=== PATIENT | male | born 1970 | race Caucasian/White ===

== ENCOUNTER 2021-01-23 16:15 | Outpatient (REF) | payer OTHER, SELFPAY ==
[2021-01-23 16:47] LABS: MANUAL DIFF FLAG NO
[2021-01-23 17:02] LABS: Basophils Absolute Auto 0.1 X10*3/uL (0.0-0.2); Basophils Percent Auto 0.6 % (0-2); Eosinophils Absolute Auto 0.1 X10*3/uL (0.0-0.4); Eosinophils Percent Auto 0.9 % (0-4); Hematocrit 41.8 % (42-52); Hemoglobin 14.2 g/dl (14.0-18.0); Imm Gran Abs Auto 0.03 X10*3/uL (0.00-0.03); Imm Gran Pct Auto 0.4 % (0.0-0.4); Lymphocytes Absolute Auto 2.1 X10*3/uL (1.2-4.9); Lymphocytes Percent Auto 25.8 % (20-40); Mean Corpuscular Hemoglobin 30.7 pg (27.0-33.0); Mean Corpuscular Volume 90.5 fL (80-98); Mean Platelet Volume 10.8 fL (9.4-12.4); Monocytes Absolute Auto 0.7 X10*3/uL (0.1-1.2); Neutrophils Absolute Auto 5.2 X10*3/uL (2.0-8.3); Neutrophils Percent Auto 64.3 % (45-73); Platelet Count 263 X10*3/uL (160-400); Red Blood Count 4.62 X10*6/uL (4.60-5.80); Red Cell Distribution Width 12.2 % (11.0-16.0); White Blood Count 8.1 X10*3/uL (4.8-10.8)
[2021-01-23 17:36] LABS: Alanine Aminotransferase 22 U/L (0-40); Albumin Level 4.7 g/dL (3.5-5.0); Alkaline Phosphatase 55 U/L (39-117); Anion Gap 12 (12-20); Aspartate Amino Transferase 22 U/L (5-37); Bilirubin Total 0.3 mg/dL (0.0-1.0); Blood Urea Nitrogen 14 mg/dL (9-16); C Reactive Protein 0.22 mg/dL (< or = 0.50); Calcium 9.8 mg/dL (8.4-10.2); Carbon Dioxide 26 mmol/L (22-29); Chloride 109 mmol/L (96-108); Estimated Glomerular Filt Rate > 60; Glucose Random 82 mg/dL (60-115); Iron 62 mcg/dL (45-160); Potassium 4.4 mmol/L (3.3-5.1); Sodium 143 mmol/L (135-145); Total Protein 7.4 g/dL (6.5-8.0)
[2021-01-23 17:42] LABS: Glucose Urine UA NEG (NEG); Leukocyte Esterase Urine NEG (NEG); Nitrite Urine NEG (NEG); Urine Blood NEG (NEG); Urine Ketones NEG (NEG); Urine Protein NEG (NEG-TRACE)
[2021-01-23 17:43] LABS: Appearance Urine CLEAR; Color Urine YELLOW
[2021-01-23 17:48] LABS: Prostate Specific Antigen 0.83 ng/mL (<0.05-4.0)
[2021-01-23 17:51] LABS: Percent Iron Saturation 19 % (15-50); Total Iron Binding Capacity 322 mcg/dL (228-428); Unsaturated Iron Binding 260 ug/dL
== END 2021-01-23 16:16 | disposition home or self-care (01) ==
LOC: HO.LAB 16:15
PROVIDERS: PCP Internal Medicine; Visit Provider Internal Medicine
DX: Z12.5 Encounter for screening for malignant neoplasm of prostate (principal); R14.0 Abdominal distension (gaseous); R19.7 Diarrhea, unspecified
CPT/HCPCS: 36415; 80053; 81003; 83540; 84153; 85025; 86140

== ENCOUNTER 2021-02-02 10:20 | Day surgery (SDC) | payer OTHER, SELFPAY ==
[2021-02-02 10:32] VITALS: BP 122/81; PULSE 89; RESP 18; TEMP 36.8; O2SAT 97; BMI 24.7
[2021-02-02] MEDS: Lactated Ringers 1,000 ML 50 ML IVCONT (10:43)
--- NOTE | 2021-02-02 10:46 | MHC.SHP ---
Pre-Procedural Eval Section A Date of Service: 02/02/21 The patient is an INPATIENT: No Changes since office visit: No Cold of Flu in the past 2 weeks, No New Medical Problems, No Changes in Medication and No Patient answered all questions The History & Physical has been completed within 30 days and I have reviewed it.: Yes Section B Chief Complaint: Other Fecal Abnormalities Allergies: Allergies Allergy/AdvReac Type Severity Reaction Status Date / Time codeine Allergy Unknown Verified 02/01/21 11:39 Plan I have reviewed the history and physical and performed a pertinent physical examination on my patient. No changes have occurred unless specified.
--- NOTE | 2021-02-02 10:53 | HO.ANESPROP2 ---
[facility] Past Medical History Medical History (Updated 02/02/21 @ 10:42 by Nisha Taylor RN) Asthma Social History Social History Patient Tobacco Use Status: Current everyday Tobacco user Use of substances other than those prescribed or required for medical reasons: Yes Have you been hit, kicked, punched, or otherwise hurt by someone within the past year? If so, by whom?: No Are you DNR?: No Advance Directives: No Advance Directives Information Provided: Yes Meds Allergies Allergy/AdvReac Type Severity Reaction Status Date / Time codeine Allergy Unknown Verified 02/01/21 11:39 Active Medications: Current Medications Generic Name Dose Route Start Last Admin Trade Name Freq PRN Reason Stop Dose Admin Lactated Ringer's 1,000 mls @ 50 mls/hr 02/02/21 08:00 02/02/21 10:43 Lr IVCONT 50 mls/hr .Q20H PREETHI Administration Home Medications Medication Instructions Recorded Confirmed Last Taken Type Prilosec OTC 02/02/21 02/02/21 02/02/21 07:00 History Exam Exam Date and Time: February 02, 2021 1053 Height,Weight and Vital Signs: Height 5 ft 10 in Weight 78.018 kg Last Vital Signs Temp 98.3 F 02/02/21 10:32 Pulse 89 02/02/21 10:32 Resp 18 02/02/21 10:32 BP 122/81 02/02/21 10:32 Pulse Ox 97 02/02/21 10:32 Airway Mallampati Class: II TM Dist: >3cm Neck ROM: Full
[2021-02-02 11:22] VITALS: BP 112/80; PULSE 71; RESP 20; TEMP 36.1; O2SAT 97
--- NOTE | 2021-02-02 11:33 | P.BOP_ITS ---
Brief Operative Note Date of Service: 02/02/21 Pre-op diagnosis: heme pos Post-op diagnosis: same (normal) Procedure: colonoscopy Surgeon: Camilo Duron Anesthesia: MAC Was an Lathe Operator Contact Lens used for this Procedure?: No Estimated blood loss (mL): 2 Pathology: other (bxs ti and ileum) Condition: stable Disposition: PACU
[2021-02-02 11:37] VITALS: BP 117/81; PULSE 75; RESP 18; TEMP 37; O2SAT 98
--- NOTE | 2021-02-02 13:16 | OP_ITS ---
SURGEON: Camilo Duron MD INDICATIONS: Heme-positive stool. PREOPERATIVE DIAGNOSIS: POSTOPERATIVE DIAGNOSIS: PROCEDURE PERFORMED: Colonoscopy to the terminal ileum with biopsy. ESTIMATED BLOOD LOSS: COMPLICATIONS: ANESTHESIA: ASSISTANTS: SPECIMENS: MEDICATIONS: Monitored anesthesia care. DESCRIPTION OF PROCEDURE: History and physical performed. The risks and benefits of the procedure were explained to the patient. Informed consent was obtained. The patient was placed in the left lateral decubitus position. A digital rectal exam was performed and was found to be normal. The Olympus pediatric video colonoscope was introduced into the rectum and advanced to the cecum without difficulty. The cecum was identified by transillumination, palpation, and identification of ileocecal valve. Examination was performed and the scope was removed. He tolerated the procedure well and was taken to recovery area in stable condition. FINDINGS: The terminal ileum was examined and there was a question of some mild ileitis. This was biopsied. There was no evidence of Crohn disease. The visualized colonic mucosa was normal. The quality of the prep was good. No polyps were identified. Retroflexed examination showed moderate-sized internal hemorrhoids. No bleeding was identified. Biopsies were obtained randomly from the sigmoid to evaluate for microscopic colitis. IMPRESSION: Normal colonoscopy. RECOMMENDATION: Follow up the biopsy results. Screening colonoscopy in 10 years. MD VIVIANE Oates/POWERL / [id number] MTDD
== END 2021-02-02 12:32 | disposition home or self-care (01) ==
PROVIDERS: PCP Internal Medicine; Visit Provider Internal Medicine Gastroenterology
PROC: 0DJD8ZZ Inspection of Lower Intestinal Tract, Via Natural or Artificial Opening Endoscopic (ICD-10-PCS; CPT 45378; principal; 2021-02-02 12:10)
DX: R19.5 Other fecal abnormalities (principal); K62.5 Hemorrhage of anus and rectum; R14.0 Abdominal distension (gaseous); K64.8 Other hemorrhoids; K21.9 Gastro-esophageal reflux disease without esophagitis; J45.909 Unspecified asthma, uncomplicated; Z79.899 Other long term (current) drug therapy; Z88.8 Allergy status to other drugs, medicaments and biological substances; Z87.891 Personal history of nicotine dependence
CPT/HCPCS: 45380; 88305

== ENCOUNTER 2022-05-15 07:43 | Outpatient (REF) | payer OTHER, SELFPAY ==
[2022-05-15 10:39] LABS: MANUAL DIFF FLAG NO
[2022-05-15 10:50] LABS: Basophils Absolute Auto 0.1 X10*3/uL (0.0-0.2); Basophils Percent Auto 0.9 % (0-2); Eosinophils Absolute Auto 0.2 X10*3/uL (0.0-0.4); Eosinophils Percent Auto 3.1 % (0-4); Hematocrit 45.7 % (42.0-52.0); Imm Gran Abs Auto 0.02 X10*3/uL (0.00-0.03); Imm Gran Pct Auto 0.3 % (0.0-0.4); Lymphocytes Absolute Auto 2.3 X10*3/uL (1.2-4.9); Mean Corpuscular HGB Conc 32.8 g/dl (31.0-36.0); Mean Corpuscular Hemoglobin 30.4 pg (27.0-33.0); Mean Corpuscular Volume 92.5 fL (80.0-98.0); Mean Platelet Volume 10.6 fL (9.4-12.4); Monocytes Absolute Auto 0.5 X10*3/uL (0.1-1.2); Monocytes Percent Auto 9.3 % (2-11); Neutrophils Absolute Auto 2.7 x10*3/uL (2.0-8.3); Neutrophils Percent Auto 46.4 % (45-73); Platelet Count 269 X10*3/uL (160-400); Red Blood Count 4.94 X10*6/uL (4.60-5.80); Red Cell Distribution Width 12.3 % (11.0-16.0); White Blood Count 5.8 X10*3/uL (4.8-10.8)
[2022-05-15 11:12] LABS: Alanine Aminotransferase 19 U/L (0-40); Albumin Level 4.7 g/dL (3.5-5.0); Alkaline Phosphatase 59 U/L (39-117); Anion Gap 13 (12-20); Aspartate Amino Transferase 20 U/L (5-37); Bilirubin Total 0.5 mg/dL (0.0-1.0); Blood Urea Nitrogen 14 mg/dL (9-16); Calcium 9.4 mg/dL (8.4-10.2); Carbon Dioxide 28 mmol/L (22-29); Chloride 105 mmol/L (96-108); Cholesterol 258 mg/dL; Estimated Glomerular Filt Rate > 60; Glucose Fasting 95 mg/dL (60-99); HDL Cholesterol 45 mg/dL; LDL Cholesterol Calculated 178 mg/dl; Sodium 142 mmol/L (135-145); Total Protein 7.4 g/dL (6.5-8.0); Triglycerides 179 mg/dL
== END 2022-05-15 07:44 | disposition home or self-care (01) ==
LOC: HO.10HDL 07:43
PROVIDERS: Visit Provider Internal Medicine
DX: Z00.00 Encounter for general adult medical examination without abnormal findings (principal)
CPT/HCPCS: 36415; 80053; 80061; 85025

== ENCOUNTER 2024-05-04 16:40 | Emergency (ER) | payer OTHER, SELFPAY ==
[2024-05-04] VITALS (7 sets, daily range): BP systolic 113–132; BP diastolic 72–97; PULSE 88–184; RESP 18–19; TEMP 36.6–36.8; O2SAT 97; BMI 24.2
--- NOTE | ~2024-05-04 | XR_ITS ---
EXAMINATION: XR CHEST CLINICAL INFORMATION: Palpitations COMPARISON: None available. TECHNIQUE: Frontal view of the chest was obtained. FINDINGS: No significant abnormality is noted involving the heart, lungs, mediastinum, bony thorax or soft tissues. XR/XR chest 1V IMPRESSION: Unremarkable examination. Electronically signed by: Doreen Cronin MD 05/04/2024 05:26 PM [facility] [place]
--- NOTE | 2024-05-04 16:42 | ECG_ITS ---
Test Reason : AFIB RVR Blood Pressure : / mmHG Vent. Rate : 175 BPM Atrial Rate : 000 BPM P-R Int : 000 ms QRS Dur : 074 ms QT Int : 250 ms P-R-T Axes : 000 033 077 degrees QTc Int : 426 ms Atrial fibrillation with rapid ventricular response Abnormal ECG No previous ECGs available Referred By: Alice Kraft Electronically Signed By:Giuseppe Longoria
--- NOTE | 2024-05-04 16:43 | ED_ITS ---
HPI - General Adult General Chief complaint: Arrhythmia/Palpitations Stated complaint: Uncontrolled Afib per Dr Bergman Time Seen by Provider: 05/04/24 16:52 History of Present Illness ED Provider: Dr. Charles HPI narrative: 53 y/o M patient; PMH HTN, HLD; presents from PCP office where he had a routine appointment with report of irregularly irregular tachycardia. The patient denies any prior history of similar symptoms. The patient denies: chest pain, SOB, cough/congestion, nausea/vomiting, abdominal pain. Related Data Home Medications ?Medication ?Instructions ?Recorded ?Confirmed Prilosec OTC 02/02/21 02/02/21 Previous Rx's ?Medication ?Instructions ?Recorded apixaban 5 mg tablet (Eliquis) 5 mg PO BID 30 days #60 tabs 05/04/24 diltiazem HCl 120 mg capsule,24 120 mg PO DAILY 30 days #30 caps 05/04/24 hr,extended release Allergies Allergy/AdvReac Type Severity Reaction Status Date / Time codeine Allergy Unknown Verified 05/04/24 16:44 Review of Systems 2 Review of Systems: Yes all other systems are reviewed and are negative PMFSH Past Medical History Attestation statement: The following information was validated with the patient. Source: unable to obtain Medical History Asthma Social History Social History Patient Tobacco Use Status: Current everyday Tobacco user Smoked in Last 30 Days: Yes Substance Use Type: Marijuana Advance Directives: No Advance Directives Information Provided: No Do you have a plan to hurt others: No Plan Physical Exam ED Vital Signs: Vital Signs - 24 hr 05/04/24 16:43 05/04/24 17:07 05/04/24 17:52 Temperature 97.8 F Pulse Rate 128 H 184 H 120 H Respiratory Rate 18 Blood Pressure 132/97 H 124/87 Pulse Oximetry 97 Oxygen Delivery Method Room Air 05/04/24 18:35 05/04/24 18:43 05/04/24 19:15 Temperature 98.3 F Pulse Rate 113 H 88 88 Respiratory Rate 19 18 Blood Pressure 116/92 H 113/80 117/72 Pulse Oximetry 97 97 Oxygen Delivery Method Room Air BMI result Body Mass Index 24.2 Patient is tachycardic in irregularly irregular rhythm, otherwise hemodynamically stable Const General: cooperative and no acute distress HENMT Head: Yes normal to inspection and Yes atraumatic Eyes General: appearance normal, both eyes and all related structures Pupils: Equal, round and reactive pupils present EOM: EOMs intact bilaterally Neck Neck: Yes normal visual inspection, Yes full ROM, Yes supple and No tender Chest Chest palpation & inspection: normal inspection of the chest and normal palpation of entire chest wall Resp Effort & Inspection: normal respiratory effort, able to speak in complete sentences, no cough and no respiratory distress Auscultation: clear to auscultation bilaterally Cardio Rate: tachycardic Rhythm: abnormal rhythm Peripheral pulses: Peripheral pulses 2+ throughout GI Inspection: Yes normal to inspection, No Abdominal wall edema and No distended Palpation (GI): Soft to palpation, not firm, nontender, no guarding and not rigid Auscultation: normal bowel sounds Back/Spine/Pelvis Back: No back tenderness Neuro Cranial nerves: Yes Equal, round and reactive pupils present Course Course Course Narrative: This is a rapid medical exam performed by Lamar Kraft NP: Additional HPI, ROS, PE not included below will be deferred to primary provider. Patient is a 53-year-old male presenting to ED from Dr. Bergman's office in [facility] with RVR in the 180's. Patient reports that he feels palpitations all the time. Denies chest pain or dyspnea. Was being seen there for a lump on his neck, unrelated to the palpitations. HR in triage 100-130s. Only on atorvastatin and losartan. Plan: EKG, labs Reevaluation(s) Reevaluation #1: Patient is afebrile, tachycardic with irregularly irregular rhythm. This rhythm on EKG is consistent with atrial fibrillation. Unfortunately as patient is uncertain when this rhythm began, he would not be an ideal candidate for emergency department cardioversion due to risk of thromboembolism. Will provide Diltiazem for rate control. After 25mg/kg IV dose Diltiazem HR improved to low 100s. Provided 60mg PO Diltiazem. Will obtain EKG, CXR, and labs. Labs reviewed. No significant leukocytosis or anemia. CHADs-Vasc 1 for HTN. He is low-moderate risk so recommended to consider anticoagulation. HAS-Bled 1 for HTN. Patient is agreeable to starting eliquis for atrial fibrillation. Reevaluation #2: CXR is unremarkable. Labs are reassuring. Initial troponin 7, pending repeat troponin. On re-evaluation patient's HR is 110 - 130BPM. Provided Diltiazem .35mg/kg Diltiazem. Discussed case with Cardiology Dr. Longoria. Recommend's out-patient follow up with daily Cardizem 120 mg. Plan: Discharge to home with Cardiology follow up Return precautions given Patient eloped from the emergency department without his discharge paperwork. Medications Administered Discontinued Medications Generic Name Dose Route Start Last Admin Trade Name Freq PRN Reason Stop Dose Admin Apixaban 5 mg 05/04/24 17:14 05/04/24 17:57 Apixaban 5 Mg Tablet PO 05/04/24 17:15 5 mg ONCE ONE Administration Diltiazem HCl 20 mg 05/04/24 17:04 05/04/24 17:07 Diltiazem Hcl 50 Mg/10 Ml Vial IVPUSH 05/04/24 17:05 20 mg STAT STA Administration Diltiazem HCl 60 mg 05/04/24 17:10 05/04/24 17:52 Diltiazem Hcl 60 Mg Tablet PO 05/04/24 17:11 60 mg ONCE ONE Administration Protocol Diltiazem HCl 27 mg 05/04/24 18:24 05/04/24 18:35 Diltiazem Hcl 50 Mg/10 Ml Vial IVPUSH 05/04/24 18:25 27 mg STAT STA Administration Medical Decision Making Lab Data 05/04/24 16:53 05/04/24 16:53 Labs: Lab Results 05/04/24 05/04/24 Range/Units 16:53 19:50 WBC 8.8 (4.8-10.8) X10*3/uL RBC 5.14 (4.60-5.80) X10*6/uL Hgb 16.2 (14.0-18.0) g/dl Hct 47.6 (42.0-52.0) % MCV 92.6 (80.0-98.0) fL MCH 31.5 (27.0-33.0) pg MCHC 34.0 (31.0-36.0) g/dl RDW 12.6 (11.0-16.0) % Plt Count 239 (160-400) X10*3/uL MPV 10.8 (9.4-12.4) fL Immature Gran % (Auto) 0.3 (0.0-0.4) % Neut % (Auto) 69.3 (45-73) % Lymph % (Auto) 19.5 L (20-40) % Calvert % (Auto) 8.9 (2-11) % Eos % (Auto) 1.3 (0-4) % Baso % (Auto) 0.7 (0-2) % Lymph # (Auto) 1.7 (1.2-4.9) X10*3/uL Calvert # (Auto) 0.8 (0.1-1.2) X10*3/uL Eos # (Auto) 0.1 (0.0-0.4) X10*3/uL Baso # (Auto) 0.1 (0.0-0.2) X10*3/uL Abs Immat Gran (auto) 0.03 (0.00-0.03) X10*3/uL Absolute Neuts (auto) 6.1 (2.0-8.3) x10*3/uL Absolute Nucleated RBC 0.000 (0.0-0.012) X10*3/uL Nucleated RBC % (auto) 0.0 (0.0-0.2) /100WBC PT 11.8 (10.9-12.4) SEC INR 1.0 (0.9-1.1) APTT 30.3 (26.0-36.8) SEC Sodium 145 (135-145) mmol/L Potassium 4.7 (3.3-5.1) mmol/L Chloride 108 (96-108) mmol/L Carbon Dioxide 25 (22-29) mmol/L Anion Gap 17 (12-20) BUN 12 (9-16) mg/dL Creatinine 0.91 (0.5-1.4) mg/dL Estim Creat Clear Calc 99.1 Estimated GFR > 60 Random Glucose 105 (60-115) mg/dL Calcium 9.9 (8.4-10.2) mg/dL Magnesium 2.0 (1.6-2.6) mg/dL Total Bilirubin 0.4 (0.0-1.0) mg/dL AST 26 (5-37) U/L ALT 36 (0-40) U/L Alkaline Phosphatase 60 (39-117) U/L Troponin I High Sens 7.2 4.8 (<3.5-35.0) ng/L Total Protein 7.7 (6.5-8.0) g/dL Albumin 4.8 (3.5-5.0) g/dL TSH 2.26 (0.32-4.0) uIU/mL Ethyl Alcohol < 10 mg/dL Independent Interpretation I performed an independent interpretation of an: EKG Interpretation: Atrial fibrillation 175BPM with normal intervals Radiology Impression Discussion of test interpretation with radiology: I have reviewed the radiologist's reading. Radiologist Impression: EXAMINATION: XR CHEST CLINICAL INFORMATION: Palpitations COMPARISON: None available. TECHNIQUE: Frontal view of the chest was obtained. FINDINGS: No significant abnormality is noted involving the heart, lungs, mediastinum, bony thorax or soft tissues. XR/XR chest 1V IMPRESSION: Unremarkable examination. Electronically signed by: Doreen Cronin MD 05/04/2024 05:26 PM [facility] [place] Critical Care Time Critical Care Time Critical Care Time: Yes Total Critical Care Time: 37 Attestation: Total critical care time: Approximately?37?minutes Due to a high probability of clinically significant, life threatening deterioration, the patient required my highest level of preparedness to intervene emergently and I personally spent this critical care time directly and personally managing the patient. This critical care time included obtaining a history; examining the patient; pulse oximetry; ordering and review of studies; arranging urgent treatment with development of a management plan; evaluation of patient's response to treatment; frequent reassessment; and, discussions with other providers. This critical care time was performed to assess and manage the high probability of imminent, life-threatening deterioration that could result in multi-organ failure. It was exclusive of separately billable procedures and treating other patients Discharge Plan Discharge Clinical Impression: Atrial fibrillation Patient Disposition: Home, Self-Care Instructions: A-fib (Atrial Fibrillation) (DC) Additional Instructions: As we discussed, you were diagnosed with a new heart rhythm called atrial fibrillation. You are started on two new medications: Eliquis (a blood thinner you take twice a day) and Diltiazem (a heart medicine you take once a day). Please call the number provided to make an appointment to be seen by cardiology as soon as possible. Follow up with your PCP as well to discuss your recent emergency department visit and for re-evaluation. Return to the emergency department for: Any head trauma Passing out Chest pain Difficulty breathing Prescriptions: New Eliquis 5 mg tablet 5 mg PO BID 30 Days Qty: 60 0RF diltiazem HCl 120 mg capsule,extended release 24 hr 120 mg PO DAILY 30 Days Qty: 30 0RF No Action Prilosec OTC Referrals: Giuseppe Longoria MD [Physician] - 1 day Print Language: Telugu
[2024-05-04 16:58] LABS: MANUAL DIFF FLAG NO
[2024-05-04 16:59] LABS: Basophils Absolute Auto 0.1 X10*3/uL (0.0-0.2); Basophils Percent Auto 0.7 % (0-2); Eosinophils Absolute Auto 0.1 X10*3/uL (0.0-0.4); Eosinophils Percent Auto 1.3 % (0-4); Hematocrit 47.6 % (42.0-52.0); Hemoglobin 16.2 g/dl (14.0-18.0); Imm Gran Abs Auto 0.03 X10*3/uL (0.00-0.03); Imm Gran Pct Auto 0.3 % (0.0-0.4); Lymphocytes Absolute Auto 1.7 X10*3/uL (1.2-4.9); Lymphocytes Percent Auto 19.5 % (20-40); Mean Corpuscular Hemoglobin 31.5 pg (27.0-33.0); Mean Corpuscular Volume 92.6 fL (80.0-98.0); Mean Platelet Volume 10.8 fL (9.4-12.4); Monocytes Absolute Auto 0.8 X10*3/uL (0.1-1.2); Monocytes Percent Auto 8.9 % (2-11); Neutrophils Absolute Auto 6.1 x10*3/uL (2.0-8.3); Neutrophils Percent Auto 69.3 % (45-73); Platelet Count 239 X10*3/uL (160-400); Red Blood Count 5.14 X10*6/uL (4.60-5.80); Red Cell Distribution Width 12.6 % (11.0-16.0); White Blood Count 8.8 X10*3/uL (4.8-10.8)
[2024-05-04] MEDS: dilTIAZem HCL 50 MG/10 ML VIAL 20 MG IVPUSH (17:07)
[2024-05-04 17:10] LABS: Prothrombin Time 11.8 SEC (10.9-12.4)
[2024-05-04 17:13] LABS: Partial Thromboplastin Time 30.3 SEC (26.0-36.8)
[2024-05-04 17:20] LABS: Troponin-I High Sensitivity 7.2 ng/L (<3.5-35.0)
[2024-05-04 17:25] LABS: Alanine Aminotransferase 36 U/L (0-40); Albumin Level 4.8 g/dL (3.5-5.0); Alkaline Phosphatase 60 U/L (39-117); Anion Gap 17 (12-20); Aspartate Amino Transferase 26 U/L (5-37); Bilirubin Total 0.4 mg/dL (0.0-1.0); Blood Urea Nitrogen 12 mg/dL (9-16); Calcium 9.9 mg/dL (8.4-10.2); Carbon Dioxide 25 mmol/L (22-29); Chloride 108 mmol/L (96-108); Creatinine Clr Calc Pharmacy 99.1; Estimated Glomerular Filt Rate > 60; Ethanol < 10 mg/dL; Glucose Random 105 mg/dL (60-115); Potassium 4.7 mmol/L (3.3-5.1); Sodium 145 mmol/L (135-145); Total Protein 7.7 g/dL (6.5-8.0)
[2024-05-04 17:36] LABS: Thyroid Stimulating Hormone 2.26 uIU/mL (0.32-4.0)
[2024-05-04] MEDS: dilTIAZem HCL 60 MG TABLET PO (17:52)
[2024-05-04] MEDS: Apixaban 5 MG TABLET PO (17:57)
[2024-05-04] MEDS: dilTIAZem HCL 50 MG/10 ML VIAL 27 MG IVPUSH (18:35)
[2024-05-04 20:22] LABS: Troponin-I High Sensitivity 4.8 ng/L (<3.5-35.0)
== END 2024-05-04 20:00 | disposition home or self-care (01) ==
PROVIDERS: Registered Nurse Emergency; Emergency Provider Emergency Medicine; PCP Internal Medicine
DX: I48.91 Unspecified atrial fibrillation (principal); Z79.01 Long term (current) use of anticoagulants; R00.0 Tachycardia, unspecified; J45.909 Unspecified asthma, uncomplicated; Z79.899 Other long term (current) drug therapy
CPT/HCPCS: 36415; 71045; 80053; 80307; 83735; 84443; 84484; 85025; 85610; 85730; 93005; 96374; 96375; 99285

== ENCOUNTER → 2024-05-04 16:42 | Outpatient (BNV) | payer OTHER, SELFPAY | PROVIDERS: Emergency Provider Emergency Medicine; PCP Internal Medicine; Visit Provider Internal Medicine Cardiovascular Disease | DX: I48.91 Unspecified atrial fibrillation (principal) | CPT/HCPCS: 93010 ==

== ENCOUNTER 2024-05-07 13:13 | Outpatient (AMB) | payer OTHER, SELFPAY ==
[2024-05-07 13:15] VITALS: BP 114/72; PULSE 109; BMI 24.2
--- NOTE | 2024-05-07 13:15 | A.OFFVIS_ITS ---
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 He was brought to the emergency room with EKG findings of atrial fibrillation with rapid ventricular response. He was treated with heart rate control and started on Eliquis for anticoagulation. He was referred to Cardiology in follow-up. Today he reports that he has been getting heart palpitations on and off for the last year. He did go to the [facility] ER once last year with a concern for AFib and was told his rhythm was normal at that time. He has continued to feel intermittent rapid heart rates. He now believes his heart rate has been continually elevated and irregular for the last month. He has no other concerning symptoms. He will get a random sharp pain in his left chest on occasion. He has no exertional chest discomfort. No shortness of breath, PND, orthopnea or edema. No lightheadedness, presyncope, syncope, falls. 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 He has no history of bleeding issues. His father has a history of atrial fibrillation. No other family history of heart disease. Patient has no personal history of diabetes. He smokes marijuana routinely, none in the last 4 days. He does not smoke cigarettes, no routine alcohol use. Drinks 1 caffeinated coffee per day. Took his 1st dose of diltiazem yesterday afternoon. [facility] Medical History Asthma Social History Patient Tobacco Use Status: Current everyday Tobacco user Substance Use Type: Marijuana Review of Systems Const All systems reviewed & are unremarkable except as noted in HPI and below ENT Denies dizziness Card Denies chest pain, Denies chest pain at rest, Denies chest pain with activity, Reports rapid heart rate, Denies pedal edema, Denies edema, Denies leg edema, Denies lightheadedness, Reports palpitations, Denies dyspnea, Denies dyspnea on exertion and Denies orthopnea Resp Denies cough, Denies dyspnea and Denies dyspnea on exertion GI Denies hematochezia and Denies change in stool character Musc Denies abnormal gait, Denies limited range of motion, Denies muscle cramps, Denies muscle weakness, Denies numbness, Denies radiating pain into limb, Denies stiffness and Denies tingling Neuro Denies abnormal gait, Denies dizziness, Denies numbness and Denies tingling Endo Reports palpitations Physical Exam Vital Signs: Last Vital Signs Pulse 109 H 05/07/24 13:15 BP 114/72 05/07/24 13:15 BMI result Body Mass Index 24.2 Const General: cooperative, healthy appearing, comfortable and no acute distress Orientation/consciousness: patient oriented x3 Neck Neck: Yes normal visual inspection Resp Effort & Inspection: normal respiratory effort Auscultation: clear to auscultation bilaterally, no crackles, no rales, no rhonchi and no wheezes Cardio Jugular venous distension: no JVD Rate: tachycardic Rhythm: abnormal rhythm Heart sounds: S1 normal heart sound present, S2 normal heart sound present, no murmurs and no rubs GI Inspection: Yes normal to inspection Skin General skin exam: no rashes or lesions noted Neuro General: patient oriented x3 Extrem General: Yes normal to inspection, No no pedal edema and No calf tenderness Psych Appearance: grossly normal Mental Status: mental status grossly normal Speech and movement: Normal speech and movement present Office Procedures EKG Details: Today, read by me, atrial fibrillation with rapid ventricular response, nonspecific ST abnormality rate 109, QTC 447 milliseconds [id number], Complete Assessment & Plan Assessment & Plan (1) Atrial fibrillation: Code(s): I48.91 - Unspecified atrial fibrillation Category: Medical Plan: Patient describes intermittent heart palpitations over the last year. He believes it has been persistent for the last month. No shortness of breath, fatigue, exertional chest discomfort. He went to his PCP for another reason on 05/04/2024 and was noted to have rapid irregularly irregular pulse. He was sent to the emergency room where his EKG confirmed AFib RVR. Was treated with IV diltiazem and sent home with diltiazem 120 mg daily for heart rate control. His CHADS-VASc score is 1. He was sent home with Eliquis 5 mg b.i.d.. EKG done today showing atrial fibrillation, rapid ventricular response, rate 109. Today he reports he was not able to get diltiazem right away. He took the 1st dose yesterday and a 2nd dose this a.m.. Diagnosis of atrial fibrillation, stroke risk with AFib and need for med management reviewed with him. Will continue on diltiazem CD at 120 mg daily. Instructed him to call us in a few days if his heart rate continues to run greater than 100 at which time the diltiazem dose will be increased. Continue Eliquis uninterrupted. Will check a Holter monitor to see if he has paroxysmal atrial fibrillation and to assess rate control. Will check an echocardiogram to assess EF, wall motion and atrial sizes. Going forward he may need a cardioversion. Once heart rates are controlled better we can plan for a nuclear stress test to evaluate for ischemia. Cardiology follow- up in 4 weeks, sooner if needed. Plan Time spent on chart review, documentation, interview and assessment Orders: Orders ECG 3 day holter monitor Today I48.91 - Unspecified atrial fibrillation CA echo transthoracic complete Today I48.91 - Unspecified atrial fibrillation Coding Level of Care Code New Pt Level 4 (56561) Complex EM visit Add On G2211 Diagnoses Atrial fibrillation I48.91 CPT Codes EKG - CPT: 97338-[id number], Complete ([id number]) Time Spent (min) 28
== END 2024-05-07 13:56 | disposition home or self-care (01) ==
PROVIDERS: PCP Internal Medicine; Visit Provider Nurse Practitioner Family
DX: I48.91 Unspecified atrial fibrillation (principal)
CPT/HCPCS: 93010; 99204; G2211

== ENCOUNTER → 2024-05-07 13:13 | Outpatient (BNVA) | payer OTHER, SELFPAY | PROVIDERS: PCP Internal Medicine; Visit Provider Nurse Practitioner Family | DX: I48.91 Unspecified atrial fibrillation (principal); Z79.899 Other long term (current) drug therapy | CPT/HCPCS: 93005 ==

== ENCOUNTER 2024-06-04 10:48 | Emergency (ER) | payer OTHER, SELFPAY ==
[2024-06-04 11:01] VITALS: BP 140/90; PULSE 180; RESP 16; TEMP 36.6; O2SAT 98; BMI 23.7
--- NOTE | 2024-06-04 11:06 | ECG_ITS ---
Test Reason : AFIB Blood Pressure : / mmHG Vent. Rate : 153 BPM Atrial Rate : 000 BPM P-R Int : 000 ms QRS Dur : 078 ms QT Int : 260 ms P-R-T Axes : 000 022 074 degrees QTc Int : 415 ms Atrial fibrillation with rapid ventricular response Abnormal ECG When compared with ECG of 04-MAY-2024 16:41, No significant change was found Referred By: Generic ED Physician Electronically Signed By:LEEANN GILL MD
[2024-06-04 11:23] LABS: MANUAL DIFF FLAG NO
[2024-06-04 11:25] LABS: Basophils Absolute Auto 0.1 X10*3/uL (0.0-0.2); Basophils Percent Auto 0.6 % (0-2); Eosinophils Absolute Auto 0.2 X10*3/uL (0.0-0.4); Eosinophils Percent Auto 1.8 % (0-4); Hematocrit 46.1 % (42.0-52.0); Hemoglobin 15.8 g/dl (14.0-18.0); Imm Gran Abs Auto 0.05 X10*3/uL (0.00-0.03); Imm Gran Pct Auto 0.6 % (0.0-0.4); Lymphocytes Absolute Auto 2.1 X10*3/uL (1.2-4.9); Lymphocytes Percent Auto 25.3 % (20-40); Mean Corpuscular HGB Conc 34.3 g/dl (31.0-36.0); Mean Corpuscular Hemoglobin 31.3 pg (27.0-33.0); Mean Corpuscular Volume 91.3 fL (80.0-98.0); Mean Platelet Volume 10.7 fL (9.4-12.4); Monocytes Absolute Auto 0.7 X10*3/uL (0.1-1.2); Monocytes Percent Auto 8.8 % (2-11); Neutrophils Absolute Auto 5.2 x10*3/uL (2.0-8.3); Neutrophils Percent Auto 62.9 % (45-73); Platelet Count 216 X10*3/uL (160-400); Red Blood Count 5.05 X10*6/uL (4.60-5.80); Red Cell Distribution Width 12.1 % (11.0-16.0); White Blood Count 8.3 X10*3/uL (4.8-10.8)
--- NOTE | 2024-06-04 11:30 | ED_ITS ---
HPI - Arrhythmia/Palpitations General Chief Complaint: Arrhythmia/Palpitations Stated Complaint: afib Time Seen by Provider: 06/04/24 11:12 Source: patient Mode of arrival: ambulatory Limitations: no limitations History of Present Illness ED Provider: Kylie Torres NP HPI narrative: Patient is a 53-year-old male with history of atrial fibrillation presenting to emergency department today coming from his echocardiogram. He states ?I was under the impression it was coming down here for an hour getting a shock and then I am going home?. He is quite upset at the time of my initial evaluation, he states he was not under the impression that he would be staying in the emergency department for any prolonged period nor would he require IV medications and re-evaluation or even admission. He states he is not prepared for this nor is his and he has absolutely no intention of staying in the emergency department. He states that he has been in atrial fibrillation over the past month you can feel the palpitations he has been on Eliquis. He denies any dizziness, lightheadedness, chest pain, shortness of breath. Related Data Home Medications ?Medication ?Instructions ?Recorded ?Confirmed Prilosec OTC 02/02/21 05/07/24 atorvastatin 10 mg tablet 10 mg PO DAILY 05/07/24 05/07/24 losartan 25 mg tablet 25 mg PO DAILY 05/07/24 05/07/24 Previous Rx's ?Medication ?Instructions ?Recorded apixaban 5 mg tablet (Eliquis) 5 mg PO BID 30 days #60 tabs 06/04/24 diltiazem HCl 240 mg 240 mg PO DAILY #30 caps 06/04/24 capsule,extended release 24 hr Allergies Allergy/AdvReac Type Severity Reaction Status Date / Time codeine Allergy Unknown Verified 06/04/24 11:03 Review of Systems 2 Review of Systems: Yes all other systems are reviewed and are negative PMFSH Past Medical History Attestation statement: The following information was validated with the patient. Source: old records reviewed Medical History Asthma Social History Social History Patient Tobacco Use Status: Current everyday Tobacco user Substance Use Type: Marijuana Advance Directives: No Advance Directives Information Provided: No Physical Exam 2 Vital Signs: Vital Signs: Last Vital Signs Temp 97.6 F 06/04/24 12:06 Pulse 162 H 06/04/24 12:06 Resp 17 06/04/24 12:06 BP 140/90 H 06/04/24 12:06 Pulse Ox 98 06/04/24 12:06 O2 Del Method Room Air 06/04/24 12:06 BMI result Body Mass Index 23.7 Appearance: Alert.?Oriented to person, place and time. No acute distress.?Normal affect. Eyes: Pupils equal, round and reactive to light.? ENT: Pharynx normal.?? Neck: Normal inspection.? Neck supple.?? CVS: Heart sounds normal. Tachycardia with irregularly irregular rhythm.? Pulses normal.?? Respiratory: No respiratory distress.? Lung sounds clear to auscultation bilaterally?? Abdomen: Soft and non-tender. Normoactive bowel sounds. ? Skin: Skin warm and dry.? Normal skin color.? Extremities: No lower extremity edema.? No calf ttp? Neuro: Moves all extremities spontaneously. Sensation intact bilaterally. No focal neuro deficits. Ambulates with normal steady gait. Medical Decision Making Medical Decision Making MDM Narrative: Patient is a 53-year-old male past medical history of hypertension, hyperlipidemia, asthma, atrial fibrillation presenting to emergency department for atrial fibrillation with RVR as per HPI. I had an at length discussion with him about the plan of care advised to this department from Dr. Ibarra of cardiology including IV diltiazem followed by ibutilide if the Cardizem is not successful and subsequently at least 4 hors of monitoring. My attending Dr. Castillo edit conversation with Dr. Ibarra discussed for initiating Cardizem and admitting to Medicine for further treatment. Patient was quite adamant about leaving the department without any treatment at this time. I discussed with him the potential risks of this including the life-threatening potential, he is currently quite tachycardic, rate remaining persistently >160. At this point he states that he will proceed only after speaking with the industrial waste treatment technician directly. Patient is quite adamant that he was advised by Terrie Armas cardiology that he would be having electrocardioversion in the emergency department today. Unfortunately, he last ate around approximately 09:00, we discussed with him the concerns of the procedure of electrocardioversion if he has not been NPO. He is quite adamant at this time that he is not staying. He would like to reschedule procedure for cardioversion with Cardiology office. I did advise him that the industrial waste treatment technician on-call today Dr. Ibarra would come down to speak with him at his request at his soonest convenience. At this time he is requesting to leave, I did discuss with him that he would be leaving against medical advice and he verbalized the understanding of this in the potential life-threatening severity of this. He is conscious alert and oriented x4. He is ambulatory with a steady gait. Of note, he has noted to have pulse more consistently around the 120s after staff leave the room. He states that the stress of this whole situation is raising it . Differential Diagnosis Differential Diagnoses: The differential diagnosis associated with the presentation includes (Atrial fibrillation RVR, anxiety) Admission/Observation Consideration of admission/observation: Escalation of care including admission/observation considered Consult Healthcare Provider Management of the patient was discussed with: Topper Packer (Cardiology Dr. Ibarra) Dr. Ibarra did come to bedside to speak with patient. He continues to choose to leave against medical advice at this time. He discussed with the patient arranging for outpatient cardioversion next week. Lab Data MDM Lab Attestation statement: I reviewed the patient's lab results. CBC is without leukocytosis anemia or thrombocytopenia. High sensitive troponin within normal range. 06/04/24 11:11 06/04/24 11:11 Labs: Lab Results 06/04/24 Range/Units 11:11 WBC 8.3 (4.8-10.8) X10*3/uL RBC 5.05 (4.60-5.80) X10*6/uL Hgb 15.8 (14.0-18.0) g/dl Hct 46.1 (42.0-52.0) % MCV 91.3 (80.0-98.0) fL MCH 31.3 (27.0-33.0) pg MCHC 34.3 (31.0-36.0) g/dl RDW 12.1 (11.0-16.0) % Plt Count 216 (160-400) X10*3/uL MPV 10.7 (9.4-12.4) fL Immature Gran % (Auto) 0.6 H (0.0-0.4) % Neut % (Auto) 62.9 (45-73) % Lymph % (Auto) 25.3 (20-40) % Swain % (Auto) 8.8 (2-11) % Eos % (Auto) 1.8 (0-4) % Baso % (Auto) 0.6 (0-2) % Lymph # (Auto) 2.1 (1.2-4.9) X10*3/uL Swain # (Auto) 0.7 (0.1-1.2) X10*3/uL Eos # (Auto) 0.2 (0.0-0.4) X10*3/uL Baso # (Auto) 0.1 (0.0-0.2) X10*3/uL Abs Immat Gran (auto) 0.05 H (0.00-0.03) X10*3/uL Absolute Neuts (auto) 5.2 (2.0-8.3) x10*3/uL Absolute Nucleated RBC 0.000 (0.0-0.012) X10*3/uL Nucleated RBC % (auto) 0.0 (0.0-0.2) /100WBC Hold Blue Top SEE NOTE Sodium Cancelled Potassium Cancelled Chloride Cancelled Carbon Dioxide Cancelled Anion Gap Cancelled BUN Cancelled Creatinine Cancelled Estim Creat Clear Calc Cancelled Estimated GFR Cancelled Random Glucose Cancelled Calcium Cancelled Total Bilirubin Cancelled AST Cancelled ALT Cancelled Alkaline Phosphatase Cancelled Troponin I High Sens 3.7 (<3.5-35.0) ng/L Total Protein Cancelled Albumin Cancelled Independent Interpretation I performed an independent interpretation of an: EKG Interpretation: Rate: 153 Atrial fibrillation with RVR? Normal QRS complex.?? ST T wave :??No ST elevation, no ST depression qTC:415 prior studies:? 04/2024 The study has been interpreted contemporaneously by me. External Record Review External record reviewed: Outpatient record Prescription Management I considered prescription management with: Other (Continue on current antiarrhythmic and anticoagulation) Discharge Plan Discharge Clinical Impression: Atrial fibrillation with RVR Patient Disposition: Left Against Medical Advice Additional Instructions: As discussed, unfortunately given that you have not been NPO prior to visit to the emergency department, would be unable to perform the electrocardioversion as you were initially under the impression of. It was recommended that you remain in the emergency department to receive IV medications for management of your rapid heart rate. You however have declined at this time and are leaving against medical advice. As mentioned, leaving against medical advice at this time poses a risk of severe or worsening of your current presentation and heart rate, which can be life- threatening and may result in . I advised that you contact your industrial waste treatment technician's office promptly to arrange for further follow-up and treatment. You may return to emergency department at any time with any new or worsening symptoms or concerns. Prescriptions: No Action diltiazem HCl 240 mg capsule,extended release 24hr 240 mg PO DAILY Qty: 30 2RF Rx Instructions: dose increased Eliquis 5 mg tablet 5 mg PO BID 30 Days Qty: 60 5RF Prilosec OTC losartan 25 mg tablet 25 mg PO DAILY atorvastatin 10 mg tablet 10 mg PO DAILY Referrals: Rico Bergman MD [Primary Care Provider] - Dave Ibarra MD [Physician] - Stand Alone Forms: Against Medical Advice Interventions: ED Discharge Assessment Last Done: 06/04/24 12:06 Discharge Date/Time: 06/04/24 12:08 Print Language: Rwandan
--- NOTE | 2024-06-04 11:44 | PC.NURSE ---
patient does not want any procedure to be done today as he has to be NPO for the cardioversion and he ate at 9 am. He is asymp with no chest pain or chest pressure; he does not feel like his heart rate is high
[2024-06-04 11:48] LABS: Troponin-I High Sensitivity 3.7 ng/L (<3.5-35.0)
[2024-06-04 12:06] VITALS: BP 140/90; PULSE 162; RESP 17; TEMP 36.4; O2SAT 98
== END 2024-06-04 12:08 | disposition left against medical advice (07) ==
PROVIDERS: Emergency Provider Student in an Organized Health Care Education/Training Program; PCP Internal Medicine
DX: I48.20 Chronic atrial fibrillation, unspecified (principal); I10 Essential (primary) hypertension; E78.5 Hyperlipidemia, unspecified; Z79.899 Other long term (current) drug therapy
CPT/HCPCS: 36415; 84484; 85025; 93005; 99283; 99285

== ENCOUNTER → 2024-06-04 11:06 | Outpatient (BNV) | payer OTHER, SELFPAY | PROVIDERS: Emergency Provider Student in an Organized Health Care Education/Training Program; PCP Internal Medicine; Visit Provider Internal Medicine Cardiovascular Disease | DX: I48.91 Unspecified atrial fibrillation (principal); R94.31 Abnormal electrocardiogram [ECG] [EKG] | CPT/HCPCS: 93010 ==

== ENCOUNTER 2024-06-14 11:44 | Day surgery (SDC) | payer OTHER, SELFPAY ==
--- OUTSIDE RECORDS SUMMARY | 2024-06-10 13:14 | XMS_ITS | Patient Health Record ---
Author Organization [facility] Address [address] [place] [id number] Care Team Providers Care Product Development Technician Name Role Phone Rico Bergman MD Primary Care Provider Camilo Vick Jr Unavailable ALLERGIES Allergen (clinical drug ingredient) Drug/Non Drug Allergy documented on EMR Reaction Allergy Type Onset Date Status codeine Codeine Unknown Drug Allergy Active REASON FOR REFERRAL No Information MEDICATIONS Medication SIG (Take, Route, Frequency, Duration) Notes Start Date End Date Status Prilosec 20 MG as directed Orally o nce a day Active MiraLax (colon prep) 8.3 ounce ((238) grams mixed with Gatorade or Crystal Light orally begin at 5:00 p.m. the day before the procedure for 1 day 01/25/2021 Active IMMUNIZATIONS Vaccine Route Administration Date Status Comme nts Influenza Unknown 01/25/2021 Refused SOCIAL HISTORY Tobacco Use: Social History Observation Description Date Details (start date - stop date) Former Smoker NA - NA Sex Assigned At : Social History Observation Description Sex Assigned At Unknown Tobacco Use/Smoking Question Answer Notes Patient is a former smoker How long has it been since you last smoked? 1-5 years Alcohol Screen Question Answer Notes Did you have a drink contain ing alcohol in the past year? Yes How often did you have a dri nk containing alcohol in the past year? 2 to 4 times a month (2 points) How many drinks did you have on a typical day when you were drinking in the past year? 1 or 2 drinks (0 point) How often did you have 6 or more drinks on one occasion in the past year? Never (0 point) Points 2 Interpretation Negative PROBLEMS Problem Type ICD Code Onset Dates Problem Status W/U Status Risk SNOMED Code Notes Problem Heme positive stool (R19.5) Active confirmed 23194676 PLAN OF TREATMENT Future Test Test Name Order Date COLONOSCOPY 01/25/2021 Insurance Providers Payer Name Payer Address Payer Phone Subscriber Number Group Number Insured Name Patient Relationship to Insured Coverage Start Date Coverage End Date [facility] [address] [address] [place], [place] [id number] LOLA RODGERS Self - patient is the insured MEDICAL (GENERAL) HISTORY Medical History History ICD Code Gastroesophageal reflux disease asthma Surgical History Surgery Date(Month/Year) tonsillectomy
--- NOTE | 2024-06-11 08:46 | P.CONAN_ITS ---
Documented by User: Sheryl De Jesus NP 06/11/24 08:46 HPI - Anesthesia Eval Consult details Narrative: 53yo M for Cardioversion Eliquis for afib PMFSH Past Medical History Medical History (Updated 06/14/24 @ 11:59 by Tierra James, RN) Hypercholesteremia Atrial fibrillation Hypertension Asthma Surgical History Surgical History (Updated 06/14/24 @ 11:59 by Tierra James RN) Hx of colonoscopy Social History Social History Are you a primary neonatal intensive care unit nurse to a significant other at home: No Do you presently have visiting nurse or other home services: No Patient Tobacco Use Status: Current everyday Tobacco user Tobacco use type: Cigarette Smoked in Last 30 Days: Yes Patient Interested in Nicotine Replacement: No Substance Use Type: Marijuana Substance Use Frequency: Occasionally Have you been hit, kicked, punched, or otherwise hurt by someone within the past year? If so, by whom?: No Are you DNR?: No Advance Directives: No Advance Directives Information Provided: Yes Recently lost weight without trying: No Nutrition Risks: No Nutritional Risk Meds Allergies Allergy/AdvReac Type Severity Reaction Status Date / Time codeine Allergy Unknown Verified 06/14/24 11:59 Home Medications ?Medication ?Instructions ?Recorded ?Confirmed ?Last Taken ?Type Prilosec OTC 02/02/21 05/07/24 02/02/21 07:00 History atorvastatin 10 mg tablet 10 mg PO DAILY 05/07/24 06/14/24 06/14/24 History losartan 25 mg tablet 25 mg PO DAILY 05/07/24 05/07/24 Unknown History Exam Narrative Narrative: EKG 05/2024 Vent. Rate : 153 BPM Atrial Rate : 000 BPM P-R Int : 000 ms QRS Dur : 078 ms QT Int : 260 ms P-R-T Axes : 000 022 074 degrees QTc Int : 415 ms Atrial fibrillation with rapid ventricular response Abnormal ECG When compared with ECG of 04-MAY-2024 16:41, No significant change was found Documented by User: Adrián Reeves MD 06/14/24 12:09 [facility] Past Medical History Medical History (Updated 06/14/24 @ 11:59 by Tierra James, RN) Hypercholesteremia Atrial fibrillation Hypertension Asthma Family History Family history of problems with anesthesia: No Surgical History Surgical History (Updated 06/14/24 @ 11:59 by Tierra James, RN) Hx of colonoscopy History of Problems with Anesthesia: No Social History Social History Are you a primary neonatal intensive care unit nurse to a significant other at home: No Do you presently have visiting nurse or other home services: No Patient Tobacco Use Status: Current everyday Tobacco user Tobacco use type: Cigarette Smoked in Last 30 Days: Yes Patient Interested in Nicotine Replacement: No Substance Use Type: Marijuana Substance Use Frequency: Occasionally Have you been hit, kicked, punched, or otherwise hurt by someone within the past year? If so, by whom?: No Are you DNR?: No Advance Directives: No Advance Directives Information Provided: Yes Recently lost weight without trying: No Nutrition Risks: No Nutritional Risk Meds Allergies Allergy/AdvReac Type Severity Reaction Status Date / Time codeine Allergy Unknown Verified 06/14/24 11:59 Home Medications ?Medication ?Instructions ?Recorded ?Confirmed ?Last Taken ?Type Prilosec OTC 02/02/21 05/07/24 02/02/21 07:00 History atorvastatin 10 mg tablet 10 mg PO DAILY 05/07/24 06/14/24 06/14/24 History losartan 25 mg tablet 25 mg PO DAILY 05/07/24 05/07/24 Unknown History Exam Airway Mallampati Class: II TM Dist: >3cm Neck ROM: Full Assessment and Plan Assessment Anesthesia Assessment: Anesthesia Plan Discussed and Chart Reviewed Final Anesthetic Review Family History of Problems with Anesthesia: No History of Problems with Anesthesia: No NPO: Yes ASA Class: III Final Preanesthetic Review: No Changes in Pt Med Stat, Meds/Allgs Chart Reviewed, Consent Obtained/Reviewed and Anes Risks/Benef Reviewed Patient Risk: Intermediate Procedure Risk: Low Anesthetic Plan Anesthetic Plan: GA Disposition: Standard PACU
--- NOTE | 2024-06-14 | ECG_ITS ---
Test Reason : PACU Blood Pressure : / mmHG Vent. Rate : 077 BPM Atrial Rate : 077 BPM P-R Int : 166 ms QRS Dur : 086 ms QT Int : 394 ms P-R-T Axes : 046 006 073 degrees QTc Int : 445 ms Sinus rhythm with Fusion complexes Otherwise normal ECG When compared with ECG of 04-JUN-2024 11:07, Sinus rhythm has replaced Atrial fibrillation Vent. rate has decreased BY 76 BPM Referred By: Giuseppe Longoria Electronically Signed By:Giuseppe Longoria
[2024-06-14 11:53] VITALS: BMI 24.4
[2024-06-14 12:07] VITALS: BP 141/95; PULSE 105; RESP 18; TEMP 36.7; O2SAT 97
[2024-06-14] MEDS: Lactated Ringers 1,000 ML 80 ML IVCONT (12:07)
--- NOTE | 2024-06-14 12:16 | MHC.SHP ---
Pre-Procedural Eval Section A - 24 Hr Update-Section A only Date of Service: 06/14/24 The patient is an INPATIENT: No The patient has been examined within 24 hours of the surgical procedure. The History & Physical has been completed within 30 days and I have reviewed it.: Yes Section B - Complete if H&P > 30 days Chief Complaint: Persistent atrial fibrillation Allergies: Allergies Allergy/AdvReac Type Severity Reaction Status Date / Time codeine Allergy Unknown Verified 06/14/24 11:59 Plan Diagnosis/Plan: Unchanged I have reviewed the history and physical and performed a pertinent physical examination on my patient. No changes have occurred unless specified. Symptomatic persistent atrial fibrillation. Time Spent With Patient Time: Total time managing care of this patient today ____ minutes.
--- NOTE | 2024-06-14 12:26 | HO.CARDIVERS ---
Cardioversion Procedure Note Cardioversion Date of Procedure: 06/14/24 Ordering Provider: Giuseppe Longoria Performing Provider: Giuseppe Longoria Indication for Procedure: Persistent Afib Performed with Transesophageal Echo: No Consent: Verbal and Written consent was obtained from the patient before starting. The patient was made aware of the risk of stroke, skin irritation, arrhythmia, failure Procedure: After consent obtained, defib pads were attached and the patient was sedated by the anesthesia team. Once adequate sedation achieved, single synchronized shock of 150 J was delivered which converted the rhythm to sinus. Complications: No acute complication. Recommendations: c/w Apixaban BID uninterrupted. adding Multaq 400 mg BID. f/u office in few weeks.
[2024-06-14 12:30] VITALS: BP 112/85; PULSE 80; RESP 18; TEMP 36.5; O2SAT 96
[2024-06-14 12:45] VITALS: BP 123/92; PULSE 75; RESP 18; TEMP 36.5; O2SAT 96
[2024-06-14 13:00] VITALS: BP 123/91; PULSE 75; RESP 18; TEMP 36.5; O2SAT 97
== END 2024-06-14 13:34 | disposition home or self-care (01) ==
PROVIDERS: PCP Internal Medicine; Visit Provider Internal Medicine Cardiovascular Disease
PROC: 5A2204Z Restoration of Cardiac Rhythm, Single (ICD-10-PCS; principal; 2024-06-14 13:30)
DX: I48.19 Other persistent atrial fibrillation (principal); I10 Essential (primary) hypertension; E78.00 Pure hypercholesterolemia, unspecified; J45.909 Unspecified asthma, uncomplicated; Z79.01 Long term (current) use of anticoagulants; Z79.899 Other long term (current) drug therapy; Z88.5 Allergy status to narcotic agent; F17.210 Nicotine dependence, cigarettes, uncomplicated
CPT/HCPCS: 92960; 93005; J2704

== ENCOUNTER → 2024-06-14 11:44 | Outpatient (BNV) | payer OTHER, SELFPAY | PROVIDERS: PCP Internal Medicine; Visit Provider Internal Medicine Cardiovascular Disease | DX: I48.19 Other persistent atrial fibrillation (principal); I49.8 Other specified cardiac arrhythmias | CPT/HCPCS: 92960; 93010 ==

== ENCOUNTER → 2024-06-21 08:08 | Outpatient (BNVA) | payer OTHER, SELFPAY | PROVIDERS: PCP Internal Medicine; Visit Provider Internal Medicine Cardiovascular Disease ==

== ENCOUNTER → 2024-06-25 14:43 | Outpatient (REF) | payer OTHER, SELFPAY ==
--- NOTE | 2024-06-25 14:46 | CA_ITS ---
Transthoracic Echocardiogram Patient (Last, First, Middle): Allan Roche M Gender: Male Date of : 1970 Age: 53 Procedure Date: 06/25/2024 Procedure Type: Transthoracic Echocardiogram Location: OP Height: 177.8 cm Weight: 79.38 kg BSA: 1.97 m2 Heart Rate: 103 bpm BP: 110 / 80 mmHg [place]vertine Installer: EDDIE Cuba MD: Terire Armas RADIOTELEGRAPH OPERATOR-C Back Roll Lathe Operator: Dave Ibarra MD Symptoms: I48.91 - Unspecified atrial fibrillation Study Quality: Fair ECG Rhythm: Atrial Fibrillation Conclusions: - 1. Moderate to severe reduction LV ejection fraction of 30-35% 2. Moderately reduced RV systolic function 3. Mild mitral regurgitation 4. Normal RV systolic pressure 5. No gross pericardial effusion Findings Left Ventricle Normal left ventricular cavity size. There is normal left ventricular wall thickness. The left ventricular systolic function is moderate to severely decreased. The visually estimated ejection fraction is between 30-35%. Diastolic function is indeterminate on the basis of available data. There is mild septal asymmetric hypertrophy. Right Ventricle Normal right ventricular cavity size. There is moderately decreased right ventricular systolic function. Atria The left atrium is normal in size. There is no evidence of interatrial shunt. The right atrium is normal in size. Aortic Valve Normal aortic valve structure and function. There is no aortic valve stenosis. There is no aortic valve regurgitation. Mitral Valve There is mild anterior and posterior mitral leaflet thickening. There is mild mitral valve regurgitation. There is no mitral valve stenosis. Pulmonic Valve The pulmonic valve is likely normal. Tricuspid Valve Normal tricuspid valve structure. There is mild tricuspid valve regurgitation. The right ventricular systolic pressure is normal. The right ventricular systolic pressure is 25 mmHg. Normal right atrial pressure. There is no evidence of pulmonary hypertension. Great Vessels All visible segments of the aorta are normal in size. The pulmonary artery was not well visualized. There is no dilatation of the ascending aorta measuring 3.30 cm. Venous The inferior vena cava is normal in size and collapses greater than 50% with inspiration. Pericardium/Pleural There is no evidence of pericardial effusion. Prior Study Comparison No prior study available for comparison. Measurements 2D Linear Measurements IVSd: 1.26 0.6-0.9/0.6-1.0 cm LVIDd: 5.36 3.9-5.3/4.2-5.9 cm LVIDd Index: 2.72 2.4-3.2/2.2-3.1 cm/m2 LVIDs: 4.64 2.0-3.6 cm LVPWd: 1.02 0.7-1.1 cm LA Diam: 4.50 2.7-3.8/3.0-4.0 cm LAIDs Index: 2.28 1.5-2.3 cm/m2 LV Mass: 303.63 67-162/88-224 g LV Mass Index: 154.13 43-95/49-115 g/m2 LVOT Diam: 2.20 3.0+(-)1.3 cm 2D Systolic Function EF 4C: 19.50 >55% EF 2C: 42.00 >55% EF BiP: 32.10 >55% Mitral Valve MV Pk E: 0.83 MV Decel Time: 173.00 E'Lateral: 10.90 E'Medial: 8.38 E/E' Med: 9.90 E/E' Lat: 7.60 PHT: 51.00 MVA PHT: 4.31 Decel Ward: 4.79 MR Vol - PW Dopp: 11.12 MR VTI: 1.39 MR ERO: 8.00 MR Alias Luis: 0.39 MR RAD: 0.40 Aortic Valve AoV Pk Luis: 0.90 AoV Mn Luis: 0.72 AoV VTI: 0.14 AoV Pk Grad: 3.00 Aov Mn Grad: 2.00 ANITA Cont.VTI: 3.22 LVOT LVOT Pk Luis: 0.73 LVOT Mn Luis: 0.51 LVOT VTI: 0.12 LVOT Pk Grad: 2.00 LVOT Mn Grad: 1.00 LVOT Diam: 2.20 LVOT Area: 3.80 Diastolic Function MV Pk E: 0.83 E'Medial: 8.38 E/E' Med: 9.90 E' Laterial: 10.90 E/E' Lat: 7.60 Right Ventricle TAPSE (mm): 12.30 TVS' Luis: 8.78 Tricuspid Valve TR Pk Luis: 2.08 TR Pk Grad: 17.00 RA Press: 8.00 RVSP: 25.00 Great Vessels Aorta Sinus of Valsalva: 3.50 2.0-3.5 cm Ao Asc: 3.30 2.1-3.4 cm Pulmonary Valve PV Pk Luis: 0.64 Peak PV Grad: 2.00 Updated in Other Vendor System with Status of Final Dave Ibarra MD electronically signed on 06/26/2024 2:10:19 PM with status of Final
--- OUTSIDE RECORDS SUMMARY | 2024-06-25 16:05 | XMS_ITS | Patient Health Record ---
Author Organization [facility] Address [address] [place] [id number] Care Team Providers Care Cast Iron Drain Pipe Layer Name Role Phone Rico Bergman MD Primary Care Provider Camilo Vick Jr Unavailable [phone] ALLERGIES Allergen (clinical drug ingredient) Drug/Non Drug [...] Problem Heme positive stool (R19.5) Active confirmed [id number] PLAN OF TREATMENT Future Test Test Name Order Date COLONOSCOPY 01/25/2021 Insurance Providers Payer Name Payer Address Payer Phone Subscriber Number Group Number Insured Name Patient Relationship to Insured Coverage Start Date Coverage End Date [facility] [address] [address] [place], [place] [id number] LOLA RODGERS Self - patient is the insured MEDICAL (GENERAL) HISTORY Medical History History ICD Code Gastroesophageal reflux disease asthma Surgical History Surgery Date(Month/Year) tonsillectomy
== END ==
LOC: HO.CARD 14:43
PROVIDERS: PCP Internal Medicine; Visit Provider Nurse Practitioner Family
DX: I48.91 Unspecified atrial fibrillation (principal)
CPT/HCPCS: 93306

== ENCOUNTER → 2024-06-25 14:46 | Outpatient (BNV) | payer OTHER, SELFPAY | PROVIDERS: PCP Internal Medicine; Visit Provider Internal Medicine Cardiovascular Disease | DX: I34.0 Nonrheumatic mitral (valve) insufficiency (principal); I36.1 Nonrheumatic tricuspid (valve) insufficiency | CPT/HCPCS: 93306 ==

== ENCOUNTER → 2024-06-28 09:00 | Outpatient (BNVA) | payer OTHER, SELFPAY | PROVIDERS: PCP Internal Medicine; Visit Provider Nurse Practitioner Family ==

== ENCOUNTER 2024-08-30 12:46 | Outpatient (AMB) | payer OTHER, SELFPAY ==
--- NOTE | 2024-08-30 12:54 | MHC.OFFVIS ---
Vital Signs 08/30/24 12:56 Height 5 ft 10 in Weight 182 lb 8.684 oz BMI 26.2 BP 110/70 Blood Pressure Location Lt brachial Position Sitting Pulse 62 Pulse Source Monitor Intake Visit Reasons: r/s 06/30/24 4wks followup holter/echo Intake Note: 4 wks f/up holter/echo Butcher Head Required: No Accompanied by: Self / Same As Patient Allergies codeine Allergy (Verified 06/14/24 11:59) Unknown Medication List - Last Reconciled 08/30/24 by Giuseppe Longoria MD amiodarone 200 mg orally: 400 mg ( 2 tabs) twice daily for 2 weeks, then reduce dose down to 200mg ( 1 tab) Daily; 30 days apixaban (Eliquis) 5 mg PO BID 30 days atorvastatin 10 mg PO DAILY losartan 25 mg PO DAILY metoprolol succinate ER 50 mg PO DAILY [Prilosec OTC ] HPI Comments Details: 53-year-old gentleman with persistent atrial fibrillation and cardiomyopathy with EF 30 35%. He is status post cardioversion in 06/11/2024. He was referred for ablation and has seen Dr. Joe at [facility] and will be undergoing ablation. He is currently on Eliquis and amiodarone. He said that he had 3 episodes of atrial fibrillation in the last couple of weeks. These happened at nighttime and lasted for couple of hours. He said he felt palpitations. Again they were self-limiting and he did not have to go to emergency department for persistent symptoms. He is taking medications regularly. Otherwise doing fine has no exertional symptoms. [facility] Medical History (Updated 08/30/24 @ 13:16 by Giuseppe Longoria MD) Hypercholesteremia Atrial fibrillation Hypertension Asthma Surgical History Hx of colonoscopy Social History Are you a primary health care marketing specialist to a significant other at home: No Do you presently have visiting nurse or other home services: No Patient Tobacco Use Status: Current everyday Tobacco user Tobacco use type: Cigarette Substance Use Type: Marijuana Review of Systems Const Denies chills, Denies fatigue, Denies fever(s), Denies frequent falls, Denies weakness, Denies weight gain and Denies weight loss ENT Denies dizziness Card Denies chest pain, Denies leg edema, Denies lightheadedness, Denies palpitations, Denies dyspnea and Denies dyspnea on exertion Resp Denies cough, Denies dyspnea and Denies dyspnea on exertion GI Denies hematochezia Musc Denies abnormal gait, Denies muscle weakness, Denies numbness, Denies radiating pain into limb and Denies tingling Neuro Denies abnormal gait, Denies dizziness, Denies frequent falls, Denies numbness, Denies tingling and Denies weakness Endo Denies fatigue and Denies palpitations Physical Exam Vital Signs: Last Vital Signs Pulse 62 08/30/24 12:56 BP 110/70 08/30/24 12:56 BMI result Body Mass Index 26.2 GENERAL APPEARANCE: in no acute distress, pleasant. NECK: no carotid bruit, no jugular venous distention. SKIN: no suspicious lesions, warm and dry. HEART: no murmurs, regular rate and rhythm. LUNGS: clear to auscultation bilaterally. ABDOMEN: soft, nontender. EXTREMITIES: no edema. PERIPHERAL PULSES: equal. NEUROLOGIC: No gross deficits, AAO X 3 Office Procedures EKG Details: Sinus rhythm 62 beats per minute, normal axis, normal ECG, QTC 434 milliseconds. [id number], Complete Assessment & Plan Assessment & Plan (1) Atrial fibrillation: Code(s): I48.91 - Unspecified atrial fibrillation Category: Medical (2) Cardiomyopathy: Code(s): I42.9 - Cardiomyopathy, unspecified Category: Medical Plan Pleasant 53 year gentleman who is here for follow-up. He underwent cardioversion in 06/11/2024 for persistent atrial fibrillation. Subsequently echocardiography was done which showed EF of 30-35% and moderately decreased RV function. Mild mitral valve regurgitation was noted. He has been referred to EP for ablation and will be undergoing further workup including CT scan soon. 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 He has some breakthrough symptoms but currently is on amiodarone and I think we weight and get him ablated. No changes in medications currently recommended and I have discussed that with Allan. Blood pressure well controlled and clinically euvolemic. We will see him back in few months. Once he gets ablated we will repeat the echocardiography. Thank you for allowing me to participate in the care of your patient. Please feel free to contact me if you have any questions. Coding Level of Care Code Est Pt Level 4 (00998) Diagnoses Atrial fibrillation I48.91 Cardiomyopathy I42.9 CPT Codes EKG - CPT: 18553-[id number], Complete ([id number])
[2024-08-30 12:56] VITALS: BP 110/70; PULSE 62; BMI 26.2
--- OUTSIDE RECORDS SUMMARY | 2024-08-30 14:17 | XMS_ITS | Patient Health Record ---
Author Organization [facility] Address [address] [place] [phone] Care Team Providers Care Brick Unloader Tender Name Role Phone Rico Bergman MD Primary Care Provider Camilo Vick Jr Unavailable Allergies Allergen (clinical drug ingredient) Drug/Non Drug Allergy documented on EMR Reaction Allergy Type Onset Date Status codeine Codeine Unknown Drug Allergy Active Reason For Referral No Information Medications Medication SIG (Take, Route, Frequency, Duration) Notes Start Date End Date Status Prilosec 20 MG as directed Orally o nce a day Active MiraLax (colon prep) 8.3 ounce ((238) grams mixed with Gatorade or Crystal Light orally begin at 5:00 p.m. the day before the procedure for 1 day 01/25/2021 Active Immunizations Vaccine Route Administration Date Status Comme nts Influenza Unknown 01/25/2021 Refused Social History Tobacco Use: Social History Observation Description Date Details (start date - stop date) Former Smoker NA - NA Tobacco Use/Smoking Question Answer Notes Patient is [...] Never (0 point) Points 2 Interpretation Negative Problems Problem Type SNOMED Code ICD Code Onset Dates Problem Status W/U Status Risk Notes Problem [id number] Heme positive stool (R19.5) Active confirmed Plan Of Treatment Future Test Test Name Order Date COLONOSCOPY 01/25/2021 Insurance Providers Payer Name Payer Address Payer Phone Subscriber Number Group Number Insured Name Patient Relationship to Insured Coverage Start Date Coverage End Date [facility] [address] [address] [place], [place] [id number] LOLA RODGERS Self - patient is the insured Medical (General) History Medical History History ICD Code Gastroesophageal reflux disease asthma Surgical History Surgery Date(Month/Year) tonsillectomy
== END 2024-08-30 13:17 | disposition home or self-care (01) ==
PROVIDERS: PCP Internal Medicine; Visit Provider Internal Medicine Cardiovascular Disease
DX: I48.91 Unspecified atrial fibrillation (principal); I42.9 Cardiomyopathy, unspecified
CPT/HCPCS: 93010; 99214

== ENCOUNTER → 2024-08-30 12:46 | Outpatient (BNVA) | payer OTHER, SELFPAY | PROVIDERS: PCP Internal Medicine; Visit Provider Internal Medicine Cardiovascular Disease | DX: I48.19 Other persistent atrial fibrillation (principal); I42.9 Cardiomyopathy, unspecified; Z79.899 Other long term (current) drug therapy | CPT/HCPCS: 93005 ==

== ENCOUNTER 2024-11-09 07:47 | Outpatient (AMB) | payer OTHER, SELFPAY ==
--- OUTSIDE RECORDS SUMMARY | 2024-11-09 07:50 | XMS_ITS | Patient Health Record ---
Author Organization [facility] Address [address] [place] [phone] Care Team Providers Care Stacking Machine Operator Name Role Phone Rico Bergman MD Primary [...] Problem Status W/U Status Risk Notes Problem [id number] Heme positive stool (R19.5) Active confirmed Plan Of Treatment Future Test Test Name Order Date COLONOSCOPY 01/25/2021 Insurance Providers Payer Name Payer Address Payer Phone Subscriber Number Group Number Insured Name Patient Relationship to Insured Coverage Start Date Coverage End Date [facility] [address] [address] [place], [place] [id number] LOLA RODGERS Self - patient is the insured Medical (General) History Medical History History ICD Code Gastroesophageal reflux disease asthma Surgical History Surgery Date(Month/Year) tonsillectomy
--- NOTE | 2024-11-09 07:56 | A.OFFPC_ITS ---
Vital Signs 11/09/24 08:02 11/09/24 08:46 Height 5 ft 10 in Weight 83.915 kg BMI 26.5 BP 132/80 Respiration 14 Pulse 76 Pulse Source Pulse Oximeter Temp 97.8 F Temp Source Temporal Artery Scan Pulse Oximetry (%) 96 Oxygen Delivery Method Room Air Intake Visit Reasons: ? Shingles Electrical And Instrumentation Mechanic Required: No Accompanied by: Self / Same As Patient Allergies codeine Allergy (Verified 11/09/24 08:01) Unknown Medication List - Last Reconciled 11/09/24 by ANGIE Bermeo amiodarone 200 mg PO DAILY apixaban (Eliquis) 5 mg PO BID 30 days atorvastatin 10 mg PO DAILY losartan 25 mg PO DAILY [Prilosec OTC ] tadalafil (Cialis) 10 mg PO DAILY PRN valacyclovir (Valtrex) 1,000 mg PO TID HPI HPI Comments History of Present Illness Details 54-year-old male with history of paroxys mal atrial fibrillation, hyperlipidemia, hypertension presents to the office today for evaluation of a rash on the left side of his chest that started Friday afternoon. He reports initially thought this was poison tereza but has not been outside in the yd or in contact with any pl ants. There is pain and pruritus at the area. There is no drainage. No fevers or chills. No history of prior shingles infection, but did have chickenpox as a child. Has not yet received Shingrix vaccine. He also presents for management of chronic conditions and to establish care Paroxysmal atrial fibrillation-s/p cardioversion 05/2024 with recurrence of atrial fibrillation within 48 hours. Referred to [facility] for cardiac ablation with good success. He does remain anticoagulated with Eliquis twice daily, denies any easy bruisability or bleeding. He does remain on amiodarone for the time being with plan to discontinue at sometime in the future per [facility] Cardiology, note reviewed. He reports he did feel palpitations 2 days after that procedure which he was told was normal but has not had any recurrence of symptoms. No shortness a breath, palpitations, lightheadedness, chest pain. Heart failure with reduced ejection fraction-last EF 30-35%. Denies any shortness of breath with exertion, orthopnea, PND. No recent weight gain. Not currently on diuretics. Hyperlipidemia-on atorvastatin, last LDL 178 in 2021 Hypertension-blood pressure in the office today 132/80. Compliant with losartan 25 mg. Metoprolol discontinued following cardiac ablation. Cigarette smoking-not currently undergoing lung cancer screening Colon cancer screening-colonoscopy up-to-date, do 2030 ROS: General: No fevers, malaise, unintentional weight loss HEENT: No blurred vision, diplopia. No sore throat, nasal congestion, rhinorrhea, sinus pain, ear pain Cardiovascular: No chest pain, palpitations, or leg edema Respiratory: No shortness of breath, wheezing, cough Neuro: No headaches, weakness, paresthesias Skin: see hpi Exam: Constitutional - Awake and Alert, No apparent distress Eyes - PERRL Cardiovascular - S1S2, RRR, No edema Respiratory - Normal lung expansion, Normal respiratory effort, No respiratory distress, CTA bilaterally Extremities - no calf tenderness bilaterally, no swelling Skin - Warm/Dry Neurological - Alert & oriented x3 Psychological - L T7 dermatomal distribution of vesicular lesions on erythematous base, no draiange [facility] Medical History (Updated 11/09/24 @ 08:52 by ANGIE Bermeo) Heart failure with reduced ejection fraction Herpes zoster Hypercholesteremia Atrial fibrillation Hypertension Asthma Surgical History (Updated 11/09/24 @ 08:56 by ANGIE Bermeo) History of cardiac ablation for atrial fibrillation History of cardioversion Hx of colonoscopy (~02/01/21) Social History Are you a primary personal care home administrator to a significant other at home: No Do you presently have visiting nurse or other home services: No Patient Tobacco Use Status: Current everyday Tobacco user Tobacco use type: Cigarette Substance Use Type: Marijuana Physical exam (Primary Care) Vital Signs: Last Vital Signs Temp 97.8 F 11/09/24 08:02 Pulse 76 11/09/24 08:02 Resp 14 11/09/24 08:02 Pulse Ox 96 11/09/24 08:02 Oxygen Delivery Method Room Air 11/09/24 08:02 BMI result Body Mass Index 26.5 Tobacco/Smoking Status: Tobacco use Status Patient Tobacco Use Status Current everyday Tobacco 11/09/24 07:59 Tobacco use type Cigarette 11/09/24 07:59 Coding Level of Care Code New Pt Level 4 (10967) Complex EM visit Add On G2211 Diagnoses Herpes zoster B02.9 Atrial fibrillation I48.91 Heart failure with reduced ejection fraction I50.20 Hypertension I10 Hypercholesteremia E78.00 Assessment & Plan Assessment & Plan (1) Herpes zoster: Code(s): B02.9 - Zoster without complications Category: Medical Plan: New onset. Valacyclovir 1 g t.i.d. prescribed. Consult on dosing and side effects-no contraindication with regard to current medications. Recommend Shingrix vaccine. Can take Tylenol as needed for pain or use topical analgesics (2) Atrial fibrillation: Code(s): I48.91 - Unspecified atrial fibrillation Category: Medical Plan: Stable following cardiac ablation 09/2924. Continue Eliquis 5 mg twice daily. No longer on rate control. Continue amiodarone 200 mg for the time being. Will evaluate TSH. Follow-up with cardiology as scheduled. CBC ordered given chronic anticoagulation (3) Heart failure with reduced ejection fraction: Comment: 30-35% Code(s): I50.20 - Unspecified systolic (congestive) heart failure Category: Medical Plan: Last EF 30-35%. Cliinically euvolemic on exam. Not on diuretics. Follow-up with cardiology as scheduled. Monitor sodium and fluid intake. Monitor for any weight gain. (4) Hypertension: Code(s): I10 - Essential (primary) hypertension Category: Medical Plan: Controlled with blood pressure 132/80. Continue losartan 25 mg daily. BMP ordered to evaluate renal function and electrolyte levels (5) Hypercholesteremia: Code(s): E78.00 - Pure hypercholesterolemia, unspecified Category: Medical Plan: Lipid panel ordered. Continue atorvastatin 10 mg daily. Will be performed fasting. Low-fat diet advised Plan Follow-up in the office in 4 months. Labs to be completed today as well as prior to next visit. Orders: Orders Basic Metabolic Panel Today B02.9 - Zoster without complications, E78.00 - Pure hypercholesterolemia, unspecified, I10 - Essential (primary) hypertension, I42.9 - Cardiomyopathy, unspecified, I48.91 - Unspecified atrial fibrillation Complete Blood Count Auto Diff Today B02.9 - Zoster without complications, E78.00 - Pure hypercholesterolemia, unspecified, I10 - Essential (primary) hypertension, I42.9 - Cardiomyopathy, unspecified, I48.91 - Unspecified atrial fibrillation Lipid Panel 3 Months E78.00 - Pure hypercholesterolemia, unspecified Hemoglobin A1c Today B02.9 - Zoster without complications, E78.00 - Pure hypercholesterolemia, unspecified, I10 - Essential (primary) hypertension, I42.9 - Cardiomyopathy, unspecified, I48.91 - Unspecified atrial fibrillation Lipid Panel Today B02.9 - Zoster without complications, E78.00 - Pure hypercholesterolemia, unspecified, I10 - Essential (primary) hypertension, I42.9 - Cardiomyopathy, unspecified, I48.91 - Unspecified atrial fibrillation Liver Panel Today B02.9 - Zoster without complications, E78.00 - Pure hypercholesterolemia, unspecified, I10 - Essential (primary) hypertension, I42.9 - Cardiomyopathy, unspecified, I48.91 - Unspecified atrial fibrillation TSH reflex Free T4 Today B02.9 - Zoster without complications, E78.00 - Pure hypercholesterolemia, unspecified, I10 - Essential (primary) hypertension, I42.9 - Cardiomyopathy, unspecified, I48.91 - Unspecified atrial fibrillation Basic Metabolic Panel 3 Months I10 - Essential (primary) hypertension Prostate Specific Antigen Today Z12.5 - Encounter for screening for malignant neoplasm of prostate Medications: New valacyclovir (Valtrex) 1,000 mg PO TID 30 tabs 0RF valacyclovir (Valtrex) 1,000 mg PO TID 7 days 21 tabs 0RF lidocaine HCl 4% (Aspercreme (lidocaine HCl)) wash hands well following use 1 appl topical TID PRN 120 grams 0RF pain
[2024-11-09 08:02] VITALS: PULSE 76; RESP 14; TEMP 36.6; O2SAT 96; BMI 26.5
[2024-11-09 08:46] VITALS: BP 132/80
== END 2024-11-09 08:17 | disposition home or self-care (01) ==
LOC: HO.HMCHD 07:48
PROVIDERS: PCP Internal Medicine; Visit Provider Physician Assistant
DX: B02.9 Zoster without complications (principal); I48.91 Unspecified atrial fibrillation; I50.20 Unspecified systolic (congestive) heart failure; I10 Essential (primary) hypertension; E78.00 Pure hypercholesterolemia, unspecified

== ENCOUNTER → 2024-11-09 07:47 | Outpatient (BNVA) | payer OTHER, SELFPAY | PROVIDERS: PCP Internal Medicine; Visit Provider Physician Assistant ==

== ENCOUNTER 2024-12-22 12:14 | Outpatient (REF) | payer OTHER, SELFPAY ==
[2024-12-22 14:15] LABS: B Type Natriuretic Peptide 20 pg/mL (<100)
[2024-12-22 14:27] LABS: Alanine Aminotransferase 23 U/L (0-40); Albumin Level 4.7 g/dL (3.5-5.0); Alkaline Phosphatase 52 U/L (39-117); Aspartate Amino Transferase 25 U/L (5-37); Total Protein 6.9 g/dL (6.5-8.0)
== END 2024-12-22 12:15 | disposition home or self-care (01) ==
LOC: HO.LAB 12:14
PROVIDERS: PCP Internal Medicine; Visit Provider Internal Medicine Cardiovascular Disease
DX: I48.91 Unspecified atrial fibrillation (principal)
CPT/HCPCS: 36415; 80076; 83880; 84443; 93005

== ENCOUNTER 2024-12-22 12:14 | Outpatient (AMB) | payer OTHER, SELFPAY ==
--- NOTE | 2024-12-22 12:36 | MHC.OFFVIS ---
Vital Signs 12/22/24 12:41 Height 5 ft 10 in Weight 181 lb 3.52 oz BMI 26.0 BP 130/80 Blood Pressure Location Lt brachial Position Sitting Pulse 83 Pulse Source Monitor Intake Visit Reasons: 4 mth Intake Note: 4 mth Environmental Intern Required: No Accompanied by: Self / Same As Patient Allergies codeine Allergy (Verified 11/09/24 08:01) Unknown Medication List - Last Reconciled 12/22/24 by Giuseppe Longoria MD amiodarone 200 mg PO DAILY apixaban (Eliquis) 5 mg PO BID 30 days atorvastatin 10 mg PO DAILY lidocaine HCl 4% (Aspercreme (lidocaine HCl)) 1 appl topical TID PRN losartan 25 mg PO DAILY [Prilosec OTC ] tadalafil (Cialis) 10 mg PO DAILY PRN valacyclovir (Valtrex) 1,000 mg PO TID 7 days HPI Comments Details: [age] year gentleman who has background of tachycardia induced cardiomyopathy with ejection fraction 30-35% based on previous echocardiography. He underwent cardioversion and was started on amiodarone. In September 2024 he underwent ablation. He is on apixaban for anticoagulation. He is currently taking losartan. He is worried about weight gain. He previously was on beta-abad but it appears he had some bradycardia and this was held. He is still taking amiodarone despite having ablation done in September. [facility] Medical History Heart failure with reduced ejection fraction Herpes zoster Hypercholesteremia Atrial fibrillation Hypertension Asthma Surgical History History of cardiac ablation for atrial fibrillation History of cardioversion Hx of colonoscopy (~02/01/21) Social History Are you a primary manager managed care to a significant other at home: No Do you presently have visiting nurse or other home services: No Patient Tobacco Use Status: Current everyday Tobacco user Tobacco use type: Cigarette Substance Use Type: Marijuana Review of Systems Const Denies chills, Denies fatigue, Denies fever(s), Denies frequent falls, Denies weakness, Denies weight gain and Denies weight loss ENT Denies dizziness Card Denies chest pain, Denies leg edema, Denies lightheadedness, Denies palpitations, Denies dyspnea and Denies dyspnea on exertion Resp Denies cough, Denies dyspnea and Denies dyspnea on exertion GI Denies hematochezia Musc Denies abnormal gait, Denies muscle weakness, Denies numbness, Denies radiating pain into limb and Denies tingling Neuro Denies abnormal gait, Denies dizziness, Denies frequent falls, Denies numbness, Denies tingling and Denies weakness Endo Denies fatigue and Denies palpitations Physical Exam Vital Signs: Last Vital Signs Pulse 83 12/22/24 12:41 BP 130/80 12/22/24 12:41 BMI result Body Mass Index 26.0 GENERAL APPEARANCE: in no acute distress, pleasant. NECK: no carotid bruit, no jugular venous distention. SKIN: no suspicious lesions, warm and dry. HEART: no murmurs, regular rate and rhythm. LUNGS: clear to auscultation bilaterally. ABDOMEN: soft, nontender. EXTREMITIES: no edema. PERIPHERAL PULSES: equal. NEUROLOGIC: No gross deficits, AAO X 3 Office Procedures EKG Details: Normal sinus rhythm 83 beats per minute, normal ECG, QTC 465 milliseconds. [id number], Complete Assessment & Plan Assessment & Plan (1) Cardiomyopathy: Code(s): I42.9 - Cardiomyopathy, unspecified Category: Medical (2) Hypertension: Code(s): I10 - Essential (primary) hypertension Category: Medical (3) Atrial fibrillation: Code(s): I48.91 - Unspecified atrial fibrillation Category: Medical Plan [age] year gentleman who has tachycardia induced cardiomyopathy secondary to atrial fibrillation. He underwent cardioversion and ablation. He is currently on apixaban. Stop the amiodarone. We will check some basic labs including TSH just to make sure he does not have hypothyroidism leading to weight gain. Clinically euvolemic. We will check echocardiogram to reassess ejection fraction. If no recovery in EF then we may need to do cardiac MRI to further assess any LV cardiomyopathy. Thank you for allowing me to participate in the care of your patient. Please feel free to contact me if you have any questions. Orders: Orders Liver Panel Today I48.91 - Unspecified atrial fibrillation TSH reflex Free T4 Today I48.91 - Unspecified atrial fibrillation B Type Natriuretic Peptide Today I48.91 - Unspecified atrial fibrillation CA echo transthoracic complete Today I42.9 - Cardiomyopathy, unspecified Coding Level of Care Code Est Pt Level 4 (47226) Diagnoses Cardiomyopathy I42.9 Hypertension I10 Atrial fibrillation I48.91 CPT Codes EKG - CPT: 36060-[id number], Complete ([id number])
[2024-12-22 12:41] VITALS: BP 130/80; PULSE 83; BMI 26.0
--- OUTSIDE RECORDS SUMMARY | 2024-12-22 12:52 | XMS_ITS | Patient Health Record ---
Author Organization [facility] Address [address] [place] [id number] Care Team Providers Care Dude Wrangler Name Role Phone Rico Bergman MD Primary [...] Problem Status W/U Status Risk Notes Problem [id number] Heme positive stool (R19.5) Active confirmed Plan Of Treatment Future Test Test Name Order Date COLONOSCOPY 01/25/2021 Insurance Providers Payer Name Payer Address Payer Phone Subscriber Number Group Number Insured Name Patient Relationship to Insured Coverage Start Date Coverage End Date [facility] [address] [address] [place], [place] [id number] LOLA RODGERS Self - patient is the insured Medical (General) History Medical History History ICD Code Gastroesophageal reflux disease asthma Surgical History Surgery Date(Month/Year) tonsillectomy
== END 2024-12-22 13:06 | disposition home or self-care (01) ==
LOC: HO.HCS 12:14
PROVIDERS: PCP Internal Medicine; Visit Provider Internal Medicine Cardiovascular Disease
DX: I42.9 Cardiomyopathy, unspecified (principal); I10 Essential (primary) hypertension; I48.91 Unspecified atrial fibrillation
CPT/HCPCS: 93010; 99214

== ENCOUNTER → 2025-02-07 09:36 | Outpatient (REF) | payer OTHER, SELFPAY ==
--- OUTSIDE RECORDS SUMMARY | 2025-02-07 10:10 | XMS_ITS | Patient Health Record ---
Author Organization [facility] Address [address] [place] [phone] Care Team Providers Care Claim Specialist Name Role Phone Pacheco (RETIRED) Rico GUARDADO Primary Care Provide Camilo Duncan Jr Unavailable [phone] Allergies Allergen (clinical drug ingredient) Drug/Non Drug [...] Problem Status W/U Status Risk Notes Problem [id number] Heme positive stool (R19.5) Active confirmed Plan Of Treatment Future Test Test Name Order Date COLONOSCOPY 01/25/2021 Insurance Providers Payer Name Payer Address Payer Phone Subscriber Number Group Number Insured Name Patient Relationship to Insured Coverage Start Date Coverage End Date [facility] [address] [address] [place], [place] [id number] LOLA RODGERS Self - patient is the insured Medical (General) History Medical History History ICD Code Gastroesophageal reflux disease asthma Surgical History Surgery Date(Month/Year) tonsillectomy
== END ==
LOC: HO.CARD 09:36
PROVIDERS: Visit Provider Internal Medicine Cardiovascular Disease
DX: I42.9 Cardiomyopathy, unspecified (principal)
CPT/HCPCS: 93306

== ENCOUNTER → 2025-02-07 09:42 | Outpatient (BNV) | payer OTHER, SELFPAY | PROVIDERS: Visit Provider Internal Medicine Cardiovascular Disease | DX: I42.9 Cardiomyopathy, unspecified (principal) | CPT/HCPCS: 93306 ==

== ENCOUNTER 2025-03-15 07:53 | Outpatient (AMB) | payer OTHER, SELFPAY ==
--- NOTE | 2025-03-15 07:55 | MHC.PC.OV ---
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 Accompanied by: Self / Same As Patient Allergies codeine Allergy (Verified 03/15/25 07:55) Unknown Medication List - Last Reconciled 03/15/25 by ANGIE Bermeo apixaban (Eliquis) 5 mg PO BID atorvastatin 10 mg PO DAILY losartan 25 mg PO DAILY [Prilosec OTC ] sildenafil (Viagra) 100 mg PO DAILY PRN Tobacco use date assessed: 03/15/25 Dental Screening Dental Screen Date: 03/15/25 Did you have a dental visit in the last 12 months?: Yes Did you have a dental problem in the last 6 months where you did not have access to dental care?: No Was dental information given to patient?: No HPI HPI Comments History of Present Illness Details 54-year-old male with history of paroxysmal atrial fibrillation, hyperlipidemia, hypertension presents to the office today for follow-up. Paroxysmal atrial fibrillation-s/p cardioversion 05/2024 with recurrence of atrial fibrillation within 48 hours. s/p ablation 10/15 with successful conversion. No longer on amiodarone. Following with Dr. Longoria. He does remain anticoagulated with Eliquis twice daily, denies any easy bruisability or bleeding. He reports he did feel palpitations 2 days after that procedure which he was told was normal but has not had any recurrence of symptoms. No shortness a breath, palpitations, lightheadedness, chest pain. Heart failure with reduced ejection fraction-most recent echo 02/14 showed improvement in ejection fraction, now between 55-60%. No regional wall motion abnormality and diastolic function normal with age. No significant valvular abnormality. Denies any shortness of breath with exertion, orthopnea, PND. No recent weight gain. Not currently on diuretics. Hyperlipidemia-on atorvastatin, last LDL 178 in 2021 Hypertension-blood pressure in the office initially 130/90, repeat 128/86. Compliant with losartan 25 mg. Metoprolol discontinued following cardiac ablation. Cigarette smoking-not currently undergoing lung cancer screening. Vaping but trying to quit Concerns: None Health maintenance: Colon cancer screening-colonoscopy up-to-date, do 2030 ROS: General: No fevers, malaise, unintentional weight loss HEENT: No blurred vision, diplopia. No sore throat, nasal congestion, rhinorrhea, sinus pain, ear pain Cardiovascular: No chest pain, palpitations, or leg edema Respiratory: No shortness of breath, wheezing, cough Neuro: No headaches, weakness, paresthesias Skin: see hpi Exam: Constitutional - Awake and Alert, No apparent distress Eyes - PERRL Cardiovascular - S1S2, RRR, No edema Respiratory - Normal lung expansion, Normal respiratory effort, No respiratory distress, CTA bilaterally Extremities - no calf tenderness bilaterally, no swelling Skin - Warm/Dry Neurological - Alert & oriented x3 Psychological - L appropriate affect [facility] Medical History (Updated 03/15/25 @ 08:18 by ANGIE Bermeo) Erectile dysfunction Heart failure with reduced ejection fraction Herpes zoster Hypercholesteremia Atrial fibrillation Hypertension Asthma Surgical History History of cardiac ablation for atrial fibrillation History of cardioversion Hx of colonoscopy (~02/01/21) Social History Housing: House Are you a primary acute care nurse to a significant other at home: No Do you presently have visiting nurse or other home services: No Patient Tobacco Use Status: Current everyday Tobacco user Tobacco use type: Cigarette e-Cigarette/Vaping Use: Currently Using Substance Use Type: Marijuana service: Yes ([employer]) Current occupational status: employed Current occupation: [employer] Cognitive needs: No Hearing needs: No Vision needs: No Questionnaire PHQ-9 Over the last 2 weeks, how often have you been bothered by any of the following problems? 1. Little interest or pleasure in doing things: not at all 2. Feeling down, depressed, or hopeless: not at all 3. Trouble falling or staying asleep, or sleeping too much: not at all 4. Feeling tired or having little energy: more than half the days 5. Poor appetite or overeating: not at all 6. Feeling bad about yourself - or that you are a failure or have let yourself or your family down: not at all 7. Trouble concentrating on things, such as reading the newspaper or watching television: not at all 8. Moving or speaking so slowly that other people could have noticed. Or the opposite - being so fidgety or restless that you have been moving around a lot more than usual: not at all 9. Thoughts that you would be better off or of hurting yourself in some way: not at all Total score: 2 Source: Developed by Drs. Larry Juárez, Holli Traore, Marcus Lee and colleagues, with an educational ba from [employer]. Thrive Questionnaire Date Thrive assessed: 03/15/25 I am a: Patient What is your living situation today?: I have a steady place to live Within the past 12 months, did the food you bought not last and you didn't have the money to get more?: Never true Within the past 12 months, did you worry whether your food would run out before you got money to buy more?: Never true Do you have trouble paying for medicines?: No Do you have trouble getting transportation to medical appointments?: No Do you have trouble paying your heating and electricity bill?: No Do you have trouble taking care of your child, family member or friend?: No Do you have trouble with day-to-day activities such as bathing, preparing meals, shopping, managing finances, etc.?: No Are you currently unemployed and looking for a job?: No Are you interested in more education?: No Please select the resources that you would like help with: None THRIVE Score: 0 AUDIT C Alcohol Use Questionnaire (AUDIT-C) 1. How often do you have a drink containing alcohol?: 2-4 times a month 2. How many drinks containing alcohol do you have on a typical day when you are drinking?: 1 or 2 Total Score: 2 RACHEL-7 AMB Questionnaire RACHEL-7 Date RACHEL - 7 assessed: 03/15/25 Feeling nervous, anxious, or on edge: 0 = Not at all Not being able to stop or control worryin = Not at all Worrying too much about different things: 0 = Not at all Trouble relaxin = Not at all Being so restless that it is hard to sit still: 0 = Not at all Becoming easily annoyed or irritable: 0 = Not at all Feeling afraid as if something awful might happen: 0 = Not at all Total RACHEL-7 score (0-4 normal; 5-9 mild; 10-14 moderate; 15-21 severe): 0 Source: Developed by Drs. Larry Juárez, Holli Traore, Marcus Lee and colleagues, with an educational ba from [employer]. Physical exam (Primary Care) Vital Signs: Last Vital Signs Temp 98.2 F 03/15/25 08:01 Pulse 80 03/15/25 08:01 Resp 16 03/15/25 08:01 BP 130/90 H 03/15/25 08:01 Pulse Ox 96 03/15/25 08:01 Oxygen Delivery Method Room Air 03/15/25 08:01 BMI result Body Mass Index 26.0 Tobacco/Smoking Status: Tobacco use Status Patient Tobacco Use Status Current everyday Tobacco 11/09/24 07:59 Tobacco use type Cigarette 11/09/24 07:59 Coding Level of Care Code Est Pt Level 4 (48534) Complex EM visit Add On G2211 Diagnoses Hypertension I10 Cardiomyopathy I42.9 Atrial fibrillation I48.91 Heart failure with reduced ejection fraction I50.20 Erectile dysfunction N52.9 Assessment & Plan Assessment & Plan (1) Hypertension: Code(s): I10 - Essential (primary) hypertension Category: Medical Plan: Controlled on recheck. Continue losartan (2) Cardiomyopathy: Code(s): I42.9 - Cardiomyopathy, unspecified Category: Medical Plan: Controlled, clinically euvolemic. Continue following with cardiology's. Last echocardiogram reviewed (3) Atrial fibrillation: Code(s): I48.91 - Unspecified atrial fibrillation Category: Medical Plan: Rate controlled., sinus rhythm. Continue Eliquis for anticoagulation. Not on rate control. Continue following with cardiology (4) Heart failure with reduced ejection fraction: Comment: 55-60% Code(s): I50.20 - Unspecified systolic (congestive) heart failure Category: Medical Plan: Clinically euvolemic. Follow-up with Cardiology. Reviewed echocardiogram with improvement in ejection fraction (5) Erectile dysfunction: Code(s): N52.9 - Male erectile dysfunction, unspecified Category: Medical Plan: Changed to sildenafil Plan Follow-up in the office in 6 months, labs to be completed following visit today. Medications: New sildenafil (Viagra) administer 30 minutes to 4 hours before activity 100 mg PO DAILY PRN 14 tabs 0RF sexual activity Discontinued tadalafil (Cialis) administer approximately 30min before sexual activity; do not use more than 1 dose per 24hrs Discontinued Reason: Doctor's Order 10 mg PO DAILY PRN 14 tabs 2RF erectile dysfunction
--- OUTSIDE RECORDS SUMMARY | 2025-03-15 07:56 | XMS_ITS | Patient Health Record ---
Author Organization [facility] Address [address] [place] [id number] Care Team Providers Care Doorshaker Name Role Phone Pacheco (RETIRED) Rico GUARDADO Primary Care Provide Camilo Duncan Jr Unavailable [phone] Allergies Allergen (clinical drug ingredient) Drug/Non Drug [...] Problem Status W/U Status Risk Notes Problem [id number] Heme positive stool (R19.5) Active confirmed Plan Of Treatment Future Test Test Name Order Date COLONOSCOPY 01/25/2021 Insurance Providers Payer Name Payer Address Payer Phone Subscriber Number Group Number Insured Name Patient Relationship to Insured Coverage Start Date Coverage End Date [facility] [address] [address] [place], [place] [id number] RODGERS Self - patient is the insured Medical (General) History Medical History History ICD Code Gastroesophageal reflux disease asthma Surgical History Surgery Date(Month/Year) tonsillectomy
[2025-03-15 08:01] VITALS: BP 130/90; PULSE 80; RESP 16; TEMP 36.8; O2SAT 96; BMI 26.0
[2025-03-15 08:16] VITALS: BP 128/86
== END 2025-03-15 08:17 | disposition home or self-care (01) ==
LOC: HO.HMCHD 07:53
PROVIDERS: PCP Internal Medicine; Visit Provider Physician Assistant
DX: I10 Essential (primary) hypertension (principal); I42.9 Cardiomyopathy, unspecified; I48.91 Unspecified atrial fibrillation; I50.20 Unspecified systolic (congestive) heart failure; N52.9 Male erectile dysfunction, unspecified

== ENCOUNTER 2025-03-15 08:20 | Outpatient (REF) | payer OTHER, SELFPAY ==
[2025-03-15 11:22] LABS: Hemoglobin A1C 140.0991 umol/L; Total Hemoglobin (HGBA1C) 3742.4757 umol/L
[2025-03-15 11:45] LABS: Prostate Specific Antigen 1.11 ng/mL (<0.05-4.0)
[2025-03-15 12:31] LABS: Alanine Aminotransferase 20 U/L (0-40); Albumin Level 4.8 g/dL (3.5-5.0); Alkaline Phosphatase 54 U/L (39-117); Anion Gap 11 (12-20); Aspartate Amino Transferase 25 U/L (5-37); Blood Urea Nitrogen 11 mg/dL (9-16); Calcium 9.3 mg/dL (8.4-10.2); Carbon Dioxide 27 mmol/L (22-29); Chloride 109 mmol/L (96-108); Cholesterol 186 mg/dL (<200); Estimated Glomerular Filt Rate > 60; HDL Cholesterol 48 mg/dL (>40); Potassium 4.0 mmol/L (3.3-5.1); Sodium 143 mmol/L (135-145); Total Protein 7.6 g/dL (6.5-8.0); Triglycerides 198 mg/dL (<150)
== END 2025-03-15 08:21 | disposition home or self-care (01) ==
LOC: HO.10HDL 08:20
PROVIDERS: Visit Provider Physician Assistant
DX: Z12.5 Encounter for screening for malignant neoplasm of prostate (principal); Z13.1 Encounter for screening for diabetes mellitus; I42.9 Cardiomyopathy, unspecified; I48.91 Unspecified atrial fibrillation; I10 Essential (primary) hypertension; E78.00 Pure hypercholesterolemia, unspecified; B02.9 Zoster without complications
CPT/HCPCS: 36415; 80048; 80061; 80076; 83036; 84153; 85025

== ENCOUNTER 2025-05-11 12:30 | Outpatient (AMB) | payer OTHER, SELFPAY ==
--- NOTE | 2025-05-11 12:53 | MHC.OFFVIS ---
Vital Signs 05/11/25 12:55 Height 5 ft 10 in Weight 183 lb 13.848 oz BMI 26.4 BP 130/72 Blood Pressure Location Lt brachial Position Sitting Pulse 86 Pulse Source Pulse Oximeter Intake Visit Reasons: 4 mth f/up-echo Intake Note: 4 mth f/up- echo Steward/Stewardess Smoke Room Required: No Accompanied by: Self / Same As Patient Allergies codeine Allergy (Verified 03/15/25 07:55) Unknown Medication List - Last Reconciled 05/11/25 by Giuseppe Longoria MD apixaban (Eliquis) 5 mg PO BID atorvastatin 10 mg PO DAILY losartan 25 mg PO DAILY [Prilosec OTC ] sildenafil (Viagra) 100 mg PO DAILY PRN HPI Comments Details: 54-year-old gentleman who has 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 He is now status post cardioversion and ablation. His ejection fraction [facility] echocardiography in January 2025 has normalized. He is on apixaban for anticoagulation. He has background of hypertension and is currently taking losartan with good blood pressure control. He occasionally feels palpitations at nighttime for few sec but no persistent symptoms on follow-up. [facility] Medical History Erectile dysfunction Heart failure with reduced ejection fraction Herpes zoster Hypercholesteremia Atrial fibrillation Hypertension Asthma Surgical History History of cardiac ablation for atrial fibrillation History of cardioversion Hx of colonoscopy (~02/01/21) Social History Housing: House Are you a primary childcare aide to a significant other at home: No Do you presently have visiting nurse or other home services: No Patient Tobacco Use Status: Current everyday Tobacco user Tobacco use type: Cigarette e-Cigarette/Vaping Use: Currently Using Substance Use Type: Marijuana service: Yes ([employer]) Current occupational status: employed Current occupation: [employer] Cognitive needs: No Hearing needs: No Vision needs: No Review of Systems Const Denies chills, Denies fatigue, Denies fever(s), Denies frequent falls, Denies weakness, Denies weight gain and Denies weight loss ENT Denies dizziness Card Denies chest pain, Denies leg edema, Denies lightheadedness, Denies palpitations, Denies dyspnea and Denies dyspnea on exertion Resp Denies cough, Denies dyspnea and Denies dyspnea on exertion GI Denies hematochezia Musc Denies abnormal gait, Denies muscle weakness, Denies numbness, Denies radiating pain into limb and Denies tingling Neuro Denies abnormal gait, Denies dizziness, Denies frequent falls, Denies numbness, Denies tingling and Denies weakness Endo Denies fatigue and Denies palpitations Physical Exam Vital Signs: Last Vital Signs Pulse 86 05/11/25 12:55 BP 130/72 05/11/25 12:55 BMI result Body Mass Index 26.4 GENERAL APPEARANCE: in no acute distress, pleasant. NECK: no carotid bruit, no jugular venous distention. SKIN: no suspicious lesions, warm and dry. HEART: no murmurs, regular rate and rhythm. LUNGS: clear to auscultation bilaterally. ABDOMEN: soft, nontender. EXTREMITIES: no edema. PERIPHERAL PULSES: equal. NEUROLOGIC: No gross deficits, AAO X 3 Assessment & Plan Assessment & Plan (1) Atrial fibrillation: Code(s): I48.91 - Unspecified atrial fibrillation Category: Medical (2) Hypertension: Code(s): I10 - Essential (primary) hypertension Category: Medical Plan Pleasant 54 year gentleman with hypertension and persistent atrial fibrillation with tachycardia induced cardiomyopathy. He underwent ablation with resolution of atrial fibrillation as well as the cardiomyopathy. Recent echocardiography in January 2025 has shown normal biventricular function. He is on anticoagulation which I have explained to him is going to be correction given the fact that atrial fibrillation can come back. He understands that and is fine with taking Eliquis currently. Blood pressure well controlled with losartan. He will see us back in 6 months. Thank you for allowing me to participate in the care of your patient. Please feel free to contact me if you have any questions. Coding Level of Care Code Est Pt Level 4 (93233) Diagnoses Atrial fibrillation I48.91 Hypertension I10
[2025-05-11 12:55] VITALS: BP 130/72; PULSE 86; BMI 26.4
== END 2025-05-11 13:07 | disposition home or self-care (01) ==
LOC: HO.HCS 12:30
PROVIDERS: PCP Internal Medicine; Visit Provider Internal Medicine Cardiovascular Disease
DX: I48.91 Unspecified atrial fibrillation (principal); I10 Essential (primary) hypertension
CPT/HCPCS: 99214